=== PATIENT | female | born 1930 | race Caucasian/White ===

== ENCOUNTER → 2017-02-16 | Outpatient (CLI) | payer BC ==
[~2017-02-16] MED LIST: ACET-1256 PO; CLTP PO; CMD25 PO; CMD5 PO; CYM60 PO; DTR5 PO; DYZ PO; LEVO100T48 PO; LIDO5DIS10 TD; METO50TA16 PO; PRED-301 PO; SIMV40TA2 PO; TRAM-10 PO; [UNRECOGNIZED DRUG - CODE] PO
[2017-02-16 17:19] LABS: BASO % 0.2 %; BASO ABS # 0.03 K/uL (0-0.2); COMPLETE YES; EOS % 0.6 %; IG% 0.9 %; LYMPH % 19.1 %; LYMPH ABS # 2.41 K/uL (1.2-3.4); MEAN CELL VOLUME 96.3 fL (80-100); MEAN CORPUSCULAR HEMOGLOBIN 33.1 pg (25-34); MEAN CORPUSCULAR HGB CONC 34.4 g/dl (32-36); MEAN PLATELET VOLUME 10.1 fL (7.4-10.4); MONO % 6.2 %; PLATELET COUNT 314 K/uL (130-400); RED BLOOD COUNT 4.05 M/uL (4.2-5.4); WHITE BLOOD COUNT 12.65 K/uL (4.8-10.8)
[2017-02-16 17:31] LABS: INR 2.8 (0.9-1.1); PROTHROMBIN TIME (PATIENT) 31.3 SECONDS (9.0-12.0)
[2017-02-16 17:44] LABS: ALT/SGPT 15 U/L (12-78); AST/SGOT 16 U/L (15-37); BLOOD UREA NITROGEN 34 mg/dl (7-18); BUN/CREATININE RATIO 18.7 (10-20); CALCIUM 8.6 mg/dl (8.5-10.1); CARBON DIOXIDE 22 mmol/L (21-32); CHLORIDE 110 mmol/L (98-107); GLUCOSE 153 mg/dl (70-99); POTASSIUM 4.6 mmol/L (3.5-5.1); SODIUM 141 mmol/L (136-145)
[2017-02-16 17:54] LABS: ALB/GLOB RATIO 0.8 (0.9-2); ALKALINE PHOSPHATASE 109 U/L (45-117)
[2017-02-17 06:35] LABS: ESTIMATED AVERAGE GLUCOSE 163 mg/dl; HA1C FLAG Normal (Normal)
== END | disposition home or self-care (01) ==
LOC: C.LAB1850 16:04
PROVIDERS: ATTEND Internal Medicine
DX: N18.3 Chronic kidney disease, stage 3 (moderate) (principal); E03.9 Hypothyroidism, unspecified; E11.9 Type 2 diabetes mellitus without complications; D68.59 Other primary thrombophilia

== ENCOUNTER → 2017-06-18 | Outpatient (CLI) | payer BC ==
[2017-06-18 16:53] LABS: HEMATOCRIT 40.4 % (37-47); MEAN CELL VOLUME 96.9 fL (80-100); MEAN CORPUSCULAR HEMOGLOBIN 30.9 pg (25-34); MEAN CORPUSCULAR HGB CONC 31.9 g/dl (32-36); MEAN PLATELET VOLUME 10.2 fL (7.4-10.4); PLATELET COUNT 277 K/uL (130-400); RED BLOOD COUNT 4.17 M/uL (4.2-5.4); WHITE BLOOD COUNT 11.86 K/uL (4.8-10.8)
[2017-06-18 17:06] LABS: PROTHROMBIN TIME (PATIENT) 46.7 SECONDS (9.0-12.0)
[2017-06-18 17:09] LABS: INR 4.1 (0.9-1.1)
[2017-06-18 17:24] LABS: ALT/SGPT 16 U/L (12-78); AST/SGOT 17 U/L (15-37); BLOOD UREA NITROGEN 32 mg/dl (7-18); CALCIUM 8.7 mg/dl (8.5-10.1); CARBON DIOXIDE 24 mmol/L (21-32); CHLORIDE 109 mmol/L (98-107); GLUCOSE 97 mg/dl (70-99); POTASSIUM 4.6 mmol/L (3.5-5.1); SODIUM 141 mmol/L (136-145)
[2017-06-18 17:35] LABS: ALB/GLOB RATIO 0.7 (0.9-2); ALKALINE PHOSPHATASE 107 U/L (45-117); CHOLESTEROL 206 mg/dl (0-200); CHOLESTEROL/HDL RATIO 4.5; HDL CHOLESTEROL 46 mg/dl; LDL CHOLESTEROL CALCULATED 115 mg/dl; TRIGLYCERIDES 225 mg/dl (0-150); VERY LOW DENSITY LIPOPROT CALC 45 mg/dl
[2017-06-19 06:26] LABS: ESTIMATED AVERAGE GLUCOSE 134 mg/dl; HA1C FLAG Normal (Normal)
== END | disposition home or self-care (01) ==
LOC: C.LAB1850 15:39
PROVIDERS: ATTEND Internal Medicine
DX: E03.9 Hypothyroidism, unspecified (principal); E11.9 Type 2 diabetes mellitus without complications; N18.3 Chronic kidney disease, stage 3 (moderate); D68.59 Other primary thrombophilia; E78.5 Hyperlipidemia, unspecified

== ENCOUNTER → 2017-06-20 | Outpatient (CLI) | payer BC ==
[2017-06-20 12:45] LABS: INR 2.2 (0.9-1.1); PROTHROMBIN TIME (PATIENT) 24.3 SECONDS (9.0-12.0)
== END | disposition home or self-care (01) ==
LOC: C.LAB1850 11:42
PROVIDERS: ATTEND Internal Medicine
DX: I70.0 Atherosclerosis of aorta (principal); Z51.81 Encounter for therapeutic drug level monitoring

== ENCOUNTER → 2017-07-05 | Outpatient (CLI) | payer BC ==
[2017-07-05 13:46] LABS: BLOOD UREA NITROGEN 34 mg/dl (7-18); BUN/CREATININE RATIO 19.8 (10-20); CARBON DIOXIDE 23 mmol/L (21-32); CHLORIDE 110 mmol/L (98-107); GLUCOSE 144 mg/dl (70-99); POTASSIUM 4.2 mmol/L (3.5-5.1); SODIUM 143 mmol/L (136-145)
== END | disposition home or self-care (01) ==
LOC: C.LAB1850 11:28
PROVIDERS: ATTEND Internal Medicine
DX: E11.9 Type 2 diabetes mellitus without complications (principal); N18.3 Chronic kidney disease, stage 3 (moderate)

== ENCOUNTER → 2017-08-02 | Outpatient (CLI) | payer BC ==
[2017-08-02 16:54] LABS: INR 2.5 (0.9-1.1); PROTHROMBIN TIME (PATIENT) 28.3 SECONDS (9.0-12.0)
== END | disposition home or self-care (01) ==
LOC: C.LAB1850 15:09
PROVIDERS: ATTEND Internal Medicine
DX: Z51.81 Encounter for therapeutic drug level monitoring (principal); Z79.01 Long term (current) use of anticoagulants

== ENCOUNTER → 2017-10-12 | Outpatient (CLI) | payer BC ==
[2017-10-12 12:12] LABS: INR 3.5 (0.9-1.1); PROTHROMBIN TIME (PATIENT) 36.2 SECONDS (9.0-12.0)
== END | disposition home or self-care (01) ==
LOC: C.LAB1850 10:54
PROVIDERS: ATTEND Internal Medicine
DX: Z51.81 Encounter for therapeutic drug level monitoring (principal)

== ENCOUNTER → 2017-10-30 | Outpatient (CLI) | payer BC ==
[2017-10-30 13:31] LABS: PROTHROMBIN TIME (PATIENT) 31.3 SECONDS (9.0-12.0)
[2017-10-30 13:32] LABS: HEMATOCRIT 39.4 % (37-47); MEAN CELL VOLUME 97.3 fL (80-100); MEAN CORPUSCULAR HEMOGLOBIN 32.1 pg (25-34); MEAN PLATELET VOLUME 10.2 fL (7.4-10.4); PLATELET COUNT 283 K/uL (130-400); RED BLOOD COUNT 4.05 M/uL (4.2-5.4)
[2017-10-30 13:50] LABS: BLOOD UREA NITROGEN 44 mg/dl (7-18); BUN/CREATININE RATIO 21.3 (10-20); CALCIUM 8.5 mg/dl (8.5-10.1); CARBON DIOXIDE 22 mmol/L (21-32); CHLORIDE 108 mmol/L (98-107); CREATININE 2.05 mg/dl (0.60-1.20); GLUCOSE 126 mg/dl (70-99); POTASSIUM 4.4 mmol/L (3.5-5.1); SODIUM 139 mmol/L (136-145)
[2017-10-31 06:07] LABS: ESTIMATED AVERAGE GLUCOSE 146 mg/dl; HA1C FLAG Normal (Normal)
== END | disposition home or self-care (01) ==
LOC: C.LAB1850 12:37
PROVIDERS: ATTEND Internal Medicine
DX: E11.22 Type 2 diabetes mellitus with diabetic chronic kidney disease (principal); N18.3 Chronic kidney disease, stage 3 (moderate); Z51.81 Encounter for therapeutic drug level monitoring; Z79.01 Long term (current) use of anticoagulants; E03.9 Hypothyroidism, unspecified

== ENCOUNTER 2017-12-17 21:48 | Emergency (ER) | payer BC ==
[~2017-12-17] VITALS: Ht 157.5 cm; Wt 87.6 kg
[2017-12-17 21:56] VITALS: TEMP 36.7; Ht 157.5 cm; Wt 87.6 kg
[2017-12-17 22:00] VITALS: O2SAT 94
[2017-12-17 22:24] LABS: BASO % 0.2 %; BASO ABS # 0.02 K/uL (0-0.2); EOS % 0.2 %; EOS ABS # 0.02 K/uL (0-0.5); HEMATOCRIT 44.5 % (37-47); HEMOGLOBIN 15.2 g/dL (12.0-16.0); IG# 0.11 K/uL (0.00-0.02); LYMPH ABS # 0.92 K/uL (1.2-3.4); MEAN CELL VOLUME 96.5 fL (80-100); MEAN CORPUSCULAR HGB CONC 34.2 g/dl (32-36); MEAN PLATELET VOLUME 10.6 fL (7.4-10.4); MONO % 13.5 %; MONO ABS # 1.24 K/uL (0.11-0.59); NEUT % 74.9 %; NEUT ABS # 6.88 K/uL (1.4-6.5); PLATELET COUNT 216 K/uL (130-400); RED CELL DISTRIBUTION WIDTH CV 13.9 % (11.5-14.5); RED CELL DISTRIBUTION WIDTH SD 48.9 fL (36.4-46.3); WHITE BLOOD COUNT 9.19 K/uL (4.8-10.8)
[2017-12-17 22:39] LABS: ALBUMIN 3.3 gm/dl (3.4-5.0); CALCIUM 8.8 mg/dl (8.5-10.1); CREATININE 2.27 mg/dl (0.60-1.20); POTASSIUM 4.3 mmol/L (3.5-5.1)
[2017-12-17 22:47] LABS: INFLUENZA B ANTIGEN Neg for Influ B (NEG)
[2017-12-17] MEDS ORDERED: SODIUM CHLORIDE 0.9% 1000ML 1,000 ML IV STA (22:55)
--- NOTE | 2017-12-17 22:57 | EMERGENCY ROOM VISIT NOTE ---
History Report prepared by Nadine: Don Gabriel Under the Supervision of: Dr. Salvatore Thompson M.D. First contact with patient: 22:49 Chief Complaint: DIARRHEA Stated Complaint: DEHYDRATION, FLU LIKE Nursing Triage Summary: pt arrives ALS from home. per report, pt has had diarrhea for several days and family is concerned for dehydration. pt also having decreased intake and confusion. History of Present Illness The patient is an 87 year old female who presents to the Emergency Room with complaints of constant weakness beginning this morning. The patient states that she has been having intermittent diarrhea for the past few days and woke up this morning feeling weak. The patient also complains of dry heaving and a cough. Per son, the patient has not taken her medication today. He notes that the patient's diarrhea has "not been that bad." He reports that he is afraid that the patient might be dehydrated. The patient denies any leg swelling, vomiting, SOB, back pain, urinary burning, and abdominal surgeries. Source of History: patient, family Onset: this morning Position: other (global) Quality: other (weakness) Timing: constant Associated Symptoms: + cough, + diarrhea, No SOB, No vomiting, No back pain Note: The patient also complains of dry heaving. She denies any leg swelling and urinary burning. Review of Systems See HPI for pertinent positives & negatives. A total of 10 systems reviewed and were otherwise negative. Past Medical & Surgical Medical Problems: (1) No chronic problems Surgical Problems: (1) H/O knee surgery Family History No pertinent family history stated. Social History Smoking Status: Unknown if Ever Smoked Alcohol Use: none Marital Status: Housing Status: lives with family Occupation Status: retired Current/Historical Medications Scheduled Acetaminophen (Tylenol), 1-2 TABLETS PO Q12HR PRN Calcium W/ Vitamins D & K (Calcium + D), 1 TAB PO QAM Captopril (Capoten), 50 MG PO BID Duloxetine HCl (Cymbalta), 30 MG PO QAM Glimepiride (Glimepiride), 1 MG PO DAILYBB Levothyroxine Sodium (Levothyroxine Sodium), 88 MCG PO QAM Metoprolol Tartrate (Lopressor) (Lopressor), 50 MG PO BID Oxybutynin Chloride (Oxybutynin Chloride), 5 MG PO QAM Prednisone (Prednisone), 5 MG PO DAILY Simvastatin (Zocor), 40 MG PO QPM Tramadol (Ultram), 50 MG PO Q4HR PRN Triamterene/Hctz (Triamterene/Hctz 37.5-25MG), 1 TAB PO QAM Warfarin Sod (Coumadin), 5 MG PO DIRECTED Warfarin Sod (Coumadin), 2.5 MG PO DIRECTED Scheduled PRN Diphenoxylate/Atropine (Lomotil), 1 TAB PO DAILY PRN for Diarrhea Allergies Coded Allergies: No Known Allergies (Verified , 12/17/17) Physical Exam Vital Signs Date Time Temp Pulse Resp B/P (MAP) Pulse Ox O2 Delivery O2 Flow Rate FiO2 12/18/17 01:20 103 20 156/119 95 12/18/17 00:37 100 12/17/17 23:37 95 20 199/95 95 Room Air 12/17/17 22:01 102 12/17/17 22:00 94 Room Air 12/17/17 21:56 36.7 103 24 127/97 95 Room Air Physical Exam GENERAL: Patient is elderly appearing and in minimal distress. Dehydrated appearing. HEENT: No acute trauma, normocephalic atraumatic, mucous membranes dry, no nasal congestion, no scleral icterus. NECK: No stridor, no adenopathy, no meningismus, trachea is midline. LUNGS: No dyspnea. Clear to auscultation and equal bilaterally. No wheeze, no rhonchi. HEART: Regular rate and rhythm. No murmurs, rubs, gallops appreciated. ABDOMEN: Soft, nontender, bowel sounds positive, no masses appreciated, no peritonitis. Umbilical hernia, easily reducible. BACK: No midline tenderness, no CVA tenderness EXTREMITIES: Normal motion all extremities, no cyanosis, no edema. NEUROLOGIC: Alert and oriented, no acute motor or sensory deficits, no focal weakness, cranial nerves grossly intact. SKIN: No rash, no jaundice, no diaphoresis. Cracked skin with poor skin turgor. Medical Decision & Procedures ER Provider Diagnostic Interpretation: X ray results are stated below per my interpretation: Chest: 1 view: No infiltrate, no effusion, normal cardiac border. Laboratory Results 12/17/17 22:10 Red Blood Count 4.61, Mean Corpuscular Volume 96.5, Mean Corpuscular Hemoglobin 33.0, Mean Corpuscular Hemoglobin Concent 34.2, Mean Platelet Volume 10.6, Neutrophils (%) (Auto) 74.9, Lymphocytes (%) (Auto) 10.0, Monocytes (%) (Auto) 13.5, Eosinophils (%) (Auto) 0.2, Basophils (%) (Auto) 0.2, Neutrophils # (Auto ) 6.88, Lymphocytes # (Auto) 0.92, Monocytes # (Auto) 1.24, Eosinophils # (Auto ) 0.02, Basophils # (Auto) 0.02 12/17/17 22:10 Test 12/17/17 22:10 12/17/17 23:20 12/17/17 23:29 White Blood Count 9.19 K/uL (4.8-10.8) Red Blood Count 4.61 M/uL (4.2-5.4) Hemoglobin 15.2 g/dL (12.0-16.0) Hematocrit 44.5 % (37-47) Mean Corpuscular Volume 96.5 fL (80-100) Mean Corpuscular Hemoglobin 33.0 pg (25-34) Mean Corpuscular Hemoglobin Concent 34.2 g/dl (32-36) Platelet Count 216 K/uL (130-400) Mean Platelet Volume 10.6 fL (7.4-10.4) Neutrophils (%) (Auto) 74.9 % Lymphocytes (%) (Auto) 10.0 % Monocytes (%) (Auto) 13.5 % Eosinophils (%) (Auto) 0.2 % Basophils (%) (Auto) 0.2 % Neutrophils # (Auto) 6.88 K/uL (1.4-6.5) Lymphocytes # (Auto) 0.92 K/uL (1.2-3.4) Monocytes # (Auto) 1.24 K/uL (0.11-0.59) Eosinophils # (Auto) 0.02 K/uL (0-0.5) Basophils # (Auto) 0.02 K/uL (0-0.2) RDW Standard Deviation 48.9 fL (36.4-46.3) RDW Coefficient of Variation 13.9 % (11.5-14.5) Immature Granulocyte % (Auto) 1.2 % Immature Granulocyte # (Auto) 0.11 K/uL (0.00-0.02) Anion Gap 14.0 mmol/L (3-11) Est Creatinine Clear Calc Drug Dose 18.3 ml/min Estimated GFR () 21.9 Estimated GFR (Non- 18.9 BUN/Creatinine Ratio 12.6 (10-20) Calcium Level 8.8 mg/dl (8.5-10.1) Magnesium Level 1.7 mg/dl (1.8-2.4) Total Bilirubin 0.3 mg/dl (0.2-1) Aspartate Amino Transf (AST/SGOT) 35 U/L (15-37) Alanine Aminotransferase (ALT/SGPT) 25 U/L (12-78) Alkaline Phosphatase 118 U/L (45-117) Total Protein 8.0 gm/dl (6.4-8.2) Albumin 3.3 gm/dl (3.4-5.0) Globulin 4.7 gm/dl (2.5-4.0) Albumin/Globulin Ratio 0.7 (0.9-2) Influenza Type A Antigen Neg for Influ A (NEG) Influenza Type B Antigen Neg for Influ B (NEG) Urine Color YELLOW Urine Appearance CLEAR (CLEAR) Urine pH 5.0 (4.5-7.5) Urine Specific [place] 1.015 (1.000-1.030) Urine Protein 1+ (NEG) Urine Glucose (UA) NEG (NEG) Urine Ketones NEG (NEG) Urine Occult Blood TRACE (NEG) Urine Nitrite NEG (NEG) Urine Bilirubin NEG (NEG) Urine Urobilinogen NEG (NEG) Urine Leukocyte Esterase NEG (NEG) Urine WBC (Auto) 1-5 /hpf (0-5) Urine RBC (Auto) 0-4 /hpf (0-4) Urine Hyaline Casts (Auto) 1-5 /lpf (0-5) Urine Epithelial Cells (Auto) 0-5 /lpf (0-5) Urine Bacteria (Auto) NEG (NEG) Prothrombin Time 17.0 SECONDS (9.0-12.0) Prothromb Time International Ratio 1.6 (0.9-1.1) Activated Partial Thromboplast Time 32.6 SECONDS (21.0-31.0) Partial Thromboplastin Ratio 1.3 Laboratory results as reviewed by me. Medications Administered Medications (Trade) Dose Ordered Sig/Heri Route Start Time Stop Time Status Last Admin Dose Admin Sodium Chloride 1,000 ml @ 999 mls/hr Q1H1M STAT IV 12/17/17 22:55 12/17/17 23:55 DC 12/17/17 23:04 999 MLS/HR ED Course 2251: The patient was evaluated in room B2. A complete history and physical exam was performed. 0043: I reevaluated and updated the patient. She is awake, alert, and feeling much better. She is also happy, smiling, and drinking water. Discussed results and discharge instructions She verbalized understanding and agreement. The patient is ready for discharge. Medical Decision Differential: Sepsis, Infectious (UTI/Pneumonia/Meningitis/etc), Metabolic/ Electrolyte Abnormality, Cardiac, Dehydration, Anemia, Hepatic, Endocrine, Toxicologic, Neurologic, amongst other pathologies entertained. 87 yr old female arrives for evaluation of generalized weakness and diarrhea. She is dehydrated appearing on arrival. Given 1 L NSS bolus with vast improvement in her appearance and much happier, interactive and better color to face. Breathing comfortably in no distress. She has unremarkable labs other than mild BUN up consistent with some dehydration. UA clear, CXR unremarkable and flu negative. She and son feel comfortable with discharge. Reviewed symptoms requiring RTED. Advised Follow up with PCP. Of not BP elevated which I suspect is secondary to not taking her meds today. Medication Reconcilliation Current Medication List: was personally reviewed by me Blood Pressure Screening Patient's blood pressure: Elevated blood pressure Blood pressure disposition: Referred to PCP Impression Primary Impression: Dehydration Additional Impressions: Diarrhea Hypertension Scribe Attestation The scribe's documentation has been prepared under my direction and personally reviewed by me in its entirety. I confirm that the note above accurately reflects all work, treatment, procedures, and medical decision making performed by me. Departure Information Dispostion Home / Self-Care Referrals Conner Solares M.D. (PCP) Forms HOME CARE DOCUMENTATION FORM, IMPORTANT VISIT INFORMATION, WORK / SCHOOL INSTRUCTIONS Patient Instructions ED Dehydration, My [facility] Additional Instructions Please follow up with your primary care provider in the next few days for recheck. We are always here to help. Your blood pressure was elevated during this visit. This is quite common in many people who are being evaluated in the Emergency Department for many reasons. However, it is important that you have your Primary Care Provider recheck your blood pressure and discuss whether treatment will be needed. prison elevated blood pressure can lead to strokes, heart attacks, kidney failure amongst other medical issues. If you develop severe headaches, chest pain, weakness in arms or legs, or other concerning symptoms call 911. Problem Qualifiers
[2017-12-18] MEDS ORDERED: TRIATAB3 PO
[2017-12-18] MEDS ORDERED: DIPH-416 PO
[2017-12-18] MEDS ORDERED: CYM/30 PO
[2017-12-18] MEDS ORDERED: CPT50 PO
[2017-12-18] MEDS ORDERED: GLIM1TAB2 PO
[2017-12-18] MEDS ORDERED: DTR5 PO
[2017-12-18] MEDS ORDERED: LEVO88TA3 PO
[2017-12-18] MEDS ORDERED: CALC1CHW57 PO
[2017-12-18] MEDS ORDERED: CMD5 PO (00:04)
[2017-12-18] MEDS ORDERED: CMD25 PO (00:04)
[2017-12-18 00:10] LABS: INR 1.6 (0.9-1.1); PTT PATIENT 32.6 SECONDS (21.0-31.0)
[2017-12-18 01:20] VITALS: BP 156/119; PULSE 103; O2SAT 95
--- NOTE | 2017-12-18 06:37 | DIAGNOSTIC IMAGING REPORT ---
CHEST ONE VIEW PORTABLE CLINICAL HISTORY: Cough, weakness. COMPARISON STUDY: Chest radiograph and chest CT April 18, 2016. FINDINGS: Lung volumes are normal. There is no pneumothorax or pleural effusion. Mild left basilar opacity likely reflects epicardial fat pad or atelectasis. There is mild cardiomegaly without evidence for pulmonary edema. There is no consolidation to suggest pneumonia. IMPRESSION: No acute cardiopulmonary findings. Electronically signed by: Aleksandr Jiménez M.D. 12/18/2017 6:36 AM Dictated Date/Time: 12/18/2017 6:34 AM
[2017-12-18] MEDS ORDERED: WARF1TAB6 PO (12:54)
== END 2017-12-18 01:28 | disposition home or self-care (01) ==
LOC: EDBD 21:48 → C.EDB 21:49
DX: E86.0 Dehydration (principal); R19.7 Diarrhea, unspecified; I10 Essential (primary) hypertension; R53.1 Weakness; R05 Cough; Z79.01 Long term (current) use of anticoagulants; Z79.899 Other long term (current) drug therapy

== ENCOUNTER 2017-12-18 12:11 | Inpatient (IN) | payer BC, OTHER ==
[~2017-12-18] VITALS: Ht 157.5 cm; Wt 90.5 kg
[~2017-12-18 12:11] MED LIST changes: +CALC1CHW57 PO; +CPT50 PO; +CYM/30 PO; +DIPH-416 PO; +GLIM1TAB2 PO; +LEVO88TA3 PO; -LIDO5DIS10 TD; +TRIATAB3 PO
[2017-12-18] MEDS ORDERED: METOPROLOL TARTRATE 1 MG/ML VIAL IV STA (12:22)
--- NOTE | 2017-12-18 12:51 | DIAGNOSTIC IMAGING REPORT ---
CHEST ONE VIEW PORTABLE CLINICAL HISTORY: Evaluate Fever/Sepsis COMPARISON STUDY: 12/17/2017 FINDINGS: Moderate cardiac megaly. Chronic thickening left lateral costophrenic angle. Lungs otherwise appear clear. IMPRESSION: Moderate cardiomegaly. No acute process. The above report was generated using voice recognition software. It may contain grammatical, syntax or spelling errors. Electronically signed by: Mau Gomez M.D. 12/18/2017 12:49 PM Dictated Date/Time: 12/18/2017 12:47 PM
[2017-12-18] MEDS ORDERED: WARF1TAB6 PO (12:54)
[2017-12-18 13:04] LABS: BASO % 0.2 %; BASO ABS # 0.02 K/uL (0-0.2); EOS % 0.1 %; EOS ABS # 0.01 K/uL (0-0.5); HEMATOCRIT 40.9 % (37-47); HEMOGLOBIN 13.7 g/dL (12.0-16.0); IG# 0.09 K/uL (0.00-0.02); LYMPH % 20.7 %; LYMPH ABS # 1.73 K/uL (1.2-3.4); MEAN CELL VOLUME 94.5 fL (80-100); MEAN CORPUSCULAR HEMOGLOBIN 31.6 pg (25-34); MEAN CORPUSCULAR HGB CONC 33.5 g/dl (32-36); MEAN PLATELET VOLUME 10.3 fL (7.4-10.4); MONO ABS # 1.84 K/uL (0.11-0.59); NEUT % 55.9 %; NEUT ABS # 4.68 K/uL (1.4-6.5); PLATELET COUNT 207 K/uL (130-400); RED CELL DISTRIBUTION WIDTH CV 14.1 % (11.5-14.5); RED CELL DISTRIBUTION WIDTH SD 48.1 fL (36.4-46.3); WHITE BLOOD COUNT 8.37 K/uL (4.8-10.8)
[2017-12-18 13:38] LABS: ALBUMIN 2.8 gm/dl (3.4-5.0); ALKALINE PHOSPHATASE 91 U/L (45-117); ALT/SGPT 26 U/L (12-78); BLOOD UREA NITROGEN 31 mg/dl (7-18); CALCIUM 8.2 mg/dl (8.5-10.1); CARBON DIOXIDE 19 mmol/L (21-32); CKMB 6.3 ng/ml (0.5-3.6); GLUCOSE 135 mg/dl (70-99); LIPASE 180 U/L (73-393); SODIUM 134 mmol/L (136-145); TOTAL PROTEIN 6.9 gm/dl (6.4-8.2)
[2017-12-18 13:43] LABS: INR 1.3 (0.9-1.1); PTT PATIENT 27.1 SECONDS (21.0-31.0)
[2017-12-18] MEDS ORDERED: HEPARIN 25000 UNIT/500 ML D5W ONE (14:51)
--- NOTE | 2017-12-18 15:01 | EMERGENCY ROOM VISIT NOTE ---
History Report prepared by Nadine: Selvin Vinson Under the Supervision of: Dr. Miguel Ángel Alexander D.O. First contact with patient: 12:16 Stated Complaint: ILLNESS History of Present Illness The patient is an 87 year old female who presents to the Emergency Room with complaints of worsening weakness that began last night. The patient was in the emergency department last night for weakness after a fall in her driveway and was discharged home. When she woke up this morning she was not able to get herself out of bed secondary to her weakness. Upon arrival to the emergency department her blood pressures was in the low 70s systolically. Source of History: patient Onset: Last night Position: other (Global) Quality: other (weakness) Timing: worsening Review of Systems See HPI for pertinent positives & negatives. A total of 10 systems reviewed and were otherwise negative. Past Medical & Surgical Medical Problems: (1) No chronic problems Surgical Problems: (1) H/O knee surgery Family History Family history omitted secondary to age. Social History Smoking Status: Unknown if Ever Smoked Alcohol Use: none Marital Status: Housing Status: lives with family Occupation Status: retired Current/Historical Medications Scheduled Captopril (Capoten), 50 MG PO BID Duloxetine HCl (Cymbalta), 30 MG PO QAM Glimepiride (Glimepiride), 1 MG PO DAILYBB Levothyroxine Sodium (Levothyroxine Sodium), 88 MCG PO QAM Metoprolol Tartrate (Lopressor) (Lopressor), 50 MG PO BID Prednisone (Prednisone), 5 MG PO DAILY Simvastatin (Zocor), 40 MG PO QPM Triamterene/Hctz (Triamterene/Hctz 37.5-25MG), 1 TAB PO QAM Warfarin Sod (Jantoven), 3 MG PO DAILY Scheduled PRN Diphenoxylate/Atropine (Lomotil), 1 TAB PO DAILY PRN for Diarrhea Allergies Coded Allergies: No Known Allergies (Verified , 12/18/17) Physical Exam Vital Signs Date Time Temp Pulse Resp B/P (MAP) Pulse Ox O2 Delivery O2 Flow Rate FiO2 12/18/17 14:49 86 20 127/84 97 Nasal Cannula 2.0 12/18/17 13:16 82 18 114/70 96 Nasal Cannula 2.0 12/18/17 13:06 82 12/18/17 12:51 98 Nasal Cannula 2.0 12/18/17 12:32 165 110/59 12/18/17 12:22 186 12/18/17 12:15 92 Room Air 12/18/17 12:15 36.4 180 22 73/66 96 Room Air 12/18/17 12:15 96 Room Air Physical Exam CONSTITUTIONAL/VITAL SIGNS: Reviewed / noted above. GENERAL: Non-toxic in appearance. INTEGUMENTARY: Warm, dry, and [place]. HEAD: Normocephalic. EYES: without scleral icterus or trauma. ENT/OROPHARYNX: clear and moist. LYMPHADENOPATHY/NECK: Is supple without lymphadenopathy or meningismus. RESPIRATORY: Lungs clear and equal. CARDIOVASCULAR: Tachycardic rate with normal rhythm. GI/ABDOMEN: Soft and nontender. No organomegaly or pulsatile mass. No rebound or guarding. Normal bowel sounds. EXTREMITIES: Warm and well perfused. BACK: No CVA tenderness. NEUROLOGICAL: Intact without focal deficits. PSYCHIATRIC: normal affect. MUSCULOSKELETAL: Normally developed with good muscle tone. Medical Decision & Procedures ER Provider Diagnostic Interpretation: Radiology results as stated below per my review and radiologist interpretation: CHEST ONE VIEW PORTABLE CLINICAL HISTORY: Evaluate Fever/Sepsis COMPARISON STUDY: 12/17/2017 FINDINGS: Moderate cardiac megaly. Chronic thickening left lateral costophrenic angle. Lungs otherwise appear clear. IMPRESSION: Moderate cardiomegaly. No acute process. The above report was generated using voice recognition software. It may contain grammatical, syntax or spelling errors. Electronically signed by: Mau Gomez M.D. 12/18/2017 12:49 PM Dictated Date/Time: 12/18/2017 12:47 PM Laboratory Results 12/18/17 12:55 Red Blood Count 4.33, Mean Corpuscular Volume 94.5, Mean Corpuscular Hemoglobin 31.6, Mean Corpuscular Hemoglobin Concent 33.5, Mean Platelet Volume 10.3, Neutrophils (%) (Auto) 55.9, Lymphocytes (%) (Auto) 20.7, Monocytes (%) (Auto) 22.0, Eosinophils (%) (Auto) 0.1, Basophils (%) (Auto) 0.2, Neutrophils # (Auto ) 4.68, Lymphocytes # (Auto) 1.73, Monocytes # (Auto) 1.84, Eosinophils # (Auto ) 0.01, Basophils # (Auto) 0.02 12/18/17 12:55 Test 12/18/17 12:22 12/18/17 12:55 12/18/17 13:26 White Blood Count 8.37 K/uL (4.8-10.8) Red Blood Count 4.33 M/uL (4.2-5.4) Hemoglobin 13.7 g/dL (12.0-16.0) Hematocrit 40.9 % (37-47) Mean Corpuscular Volume 94.5 fL (80-100) Mean Corpuscular Hemoglobin 31.6 pg (25-34) Mean Corpuscular Hemoglobin Concent 33.5 g/dl (32-36) Platelet Count 207 K/uL (130-400) Mean Platelet Volume 10.3 fL (7.4-10.4) Neutrophils (%) (Auto) 55.9 % Lymphocytes (%) (Auto) 20.7 % Monocytes (%) (Auto) 22.0 % Eosinophils (%) (Auto) 0.1 % Basophils (%) (Auto) 0.2 % Neutrophils # (Auto) 4.68 K/uL (1.4-6.5) Lymphocytes # (Auto) 1.73 K/uL (1.2-3.4) Monocytes # (Auto) 1.84 K/uL (0.11-0.59) Eosinophils # (Auto) 0.01 K/uL (0-0.5) Basophils # (Auto) 0.02 K/uL (0-0.2) RDW Standard Deviation 48.1 fL (36.4-46.3) RDW Coefficient of Variation 14.1 % (11.5-14.5) Immature Granulocyte % (Auto) 1.1 % Immature Granulocyte # (Auto) 0.09 K/uL (0.00-0.02) Anion Gap 13.0 mmol/L (3-11) Estimated GFR () 22.8 Estimated GFR (Non- 19.6 BUN/Creatinine Ratio 14.0 (10-20) Calcium Level 8.2 mg/dl (8.5-10.1) Total Bilirubin 0.4 mg/dl (0.2-1) Direct Bilirubin mg/dl (0-0.2) Aspartate Amino Transf (AST/SGOT) U/L (15-37) Alanine Aminotransferase (ALT/SGPT) 26 U/L (12-78) Alkaline Phosphatase 91 U/L (45-117) Total Creatine Kinase U/L (26-192) Creatine Kinase MB 6.3 ng/ml (0.5-3.6) Creatine Kinase MB Ratio (0-3.0) Troponin I 0.207 ng/ml (0-0.045) Total Protein 6.9 gm/dl (6.4-8.2) Albumin 2.8 gm/dl (3.4-5.0) Lipase 180 U/L (73-393) Thyroid Stimulating Hormone (TSH) 1.330 uIu/ml (0.300-4.500) Prothrombin Time 14.0 SECONDS (9.0-12.0) Prothromb Time International Ratio 1.3 (0.9-1.1) Activated Partial Thromboplast Time 27.1 SECONDS (21.0-31.0) Partial Thromboplastin Ratio 1.0 Laboratory results as stated above per my review. Medications Administered Medications (Trade) Dose Ordered Sig/Heri Route Start Time Stop Time Status Last Admin Dose Admin Metoprolol Tartrate (Lopressor Iv) 5 mg NOW STAT IV 12/18/17 12:22 12/18/17 12:27 DC 12/18/17 12:32 5 MG ECG Indication: weakness Rate (beats per minute): 180 Rhythm: SVT Findings: other (No ST elevations or Depressions) Comparison ECG Date: Change: REAPEAT EKG SHOWS: Sinus tachycardia 109, PACs present, no acute injury. THIRD EKG: SR 86, PACs, NO ST elevations or depressions. Patient's electrocardiogram interpreted by me. ED Course 1217: Previous medical records were reviewed. The patient was evaluated in room B9. A complete history and physical examination was performed. 1222: Ordered Lopressor IV 5 mg IV. 1440: I discussed the case with Dr. Kael CROSS Hospitalist. She will evaluate the patient for further treatment. Medical Decision Differential includes acute coronary syndrome, myocardial infarction, CVA, TIA, anemia, infection, pneumonia, UTI, pyelonephritis, poor nutrition, dehydration, electrolyte disturbance,hypoglycemia. This is an 87-year-old female who presents to the ED with a chief complaint of weakness this morning. She was brought in for evaluation for this. She fell last night after being discharged from the hospital. She was evaluated last night and felt to have dehydration. Last night she was also hypertensive. On her presentation, she is in an SVT with a heart rate of 180. Her blood pressure was initially low. As I was evaluating the patient, she spontaneously converted into a sinus rhythm with a rate around 100. During my initial evaluation she had at least 2 other episodes of SVT that lasted for several minutes. The patient was eventually given Lopressor IV 5 mg and her heart rate improved. The patient's blood pressure was also improved after spontaneous conversion to sinus rhythm. The patient's blood work reveals a unremarkable CBC. Troponin was slightly elevated at 0.207. BUN and creatinine are elevated at 2.2. She is chronically on Coumadin and her INR is 1.3. She is on this for PE. TSH was normal, chest x-ray reveals cardiomegaly. The patient was started on IV heparin after spoke with the hospitalist. She will be admitted for the elevated troponin, recurrent SVT and subtherapeutic INR. Medication Reconcilliation Current Medication List: was personally reviewed by me Blood Pressure Screening Patient's blood pressure: Low blood pressure Referred to hospitalist Consults Time Called: 1435 Consulting Physician: Dr. Kael CROSS Hospitalist Returned Call: 1440 I discussed the case with Dr. Kael CROSS Hospitalist. She will evaluate the patient for further treatment. Impression Primary Impression: Elevated troponin Additional Impression: SVT (supraventricular tachycardia) Scribe Attestation The scribe's documentation has been prepared under my direction and personally reviewed by me in its entirety. I confirm that the note above accurately reflects all work, treatment, procedures, and medical decision making performed by me. Departure Information Dispostion Being Evaluated By Hospitalist Referrals Conner Solares M.D. (PCP) Problem Qualifiers
[2017-12-18] MEDS ORDERED: GLUCAGON FOR INJ 1 MG VIAL SQ PRN (16:45)
[2017-12-18] MEDS ORDERED: ALUMINUM/MAGNESIUM/SIMETH (MAALOX MAX) 30 ML UDC PO PRN (16:45)
[2017-12-18] MEDS ORDERED: DEXTROSE 50% 50 ML SYR IV PRN (16:45)
[2017-12-18] MEDS ORDERED: MAGNESIUM HYDROXIDE SUSP 30 ML UDC PO PRN (16:45)
[2017-12-18] MEDS ORDERED: ACETAMINOPHEN 325 MG TAB PO PRN (16:45)
[2017-12-18] MEDS ORDERED: POLYETHYLENE (MIRALAX) 17 GM PACK PO PRN (16:45)
[2017-12-18] MEDS ORDERED: ONDANSETRON INJ 2 MG/ML 2 ML VIAL IV PRN (16:45)
[2017-12-18] MEDS ORDERED: GLUCOSE 10 TABS/TUBE PO PRN (16:45)
[2017-12-18] MEDS ORDERED: GLUCOSE 40% GEL 15 GM TUBE PO PRN (16:45)
[2017-12-18] MEDS ORDERED: ZOLPIDEM TARTRATE 5 MG TAB PO PRN ×2 (16:45)
[2017-12-18] MEDS ORDERED: HYDROCORTISONE SOD SUCCINATE 100 MG/2 ML VIAL IM SCH (17:00)
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
[2017-12-18 18:01] LABS: AST/SGOT 36 U/L (15-37); POTASSIUM 3.3 mmol/L (3.5-5.1)
[2017-12-18 18:07] VITALS: BP 174/83; PULSE 91; TEMP 36.8; O2SAT 95
[2017-12-18 18:28] VITALS: Ht 157.5 cm; Wt 90.5 kg
[2017-12-18] MEDS: SODIUM CHLORIDE 0.9% 1000ML 1,000 ML IV SCH (18:46)
[2017-12-18 19:56] LABS: INFLUENZA A PCR Neg for Influ A (NEG); INFLUENZA B PCR Neg for Influ B (NEG)
[2017-12-18 20:00] VITALS: BP 147/68; PULSE 97; TEMP 36.7; O2SAT 99
[2017-12-18] MEDS: HYDROCORTISONE IV 50 MG in SYRINGE 0 ML IV SCH (20:38)
[2017-12-18] MEDS: WARFARIN SOD 3 MG TAB PO SCH (20:39)
[2017-12-18] MEDS: SIMVASTATIN 40 MG TAB PO SCH (20:39)
[2017-12-18] MEDS: INSULIN ASPART 100 UNITS/ML 3 ML PEN SC SCH (20:40)
[2017-12-18] MEDS: METOPROLOL TARTRATE 50 MG TAB PO SCH (20:40)
--- NOTE | 2017-12-18 21:24 | DIAGNOSTIC IMAGING REPORT ---
HEAD WITHOUT CONTRAST (CT) CLINICAL HISTORY: 87 years-old Female presenting with weakness. TECHNIQUE: Multidetector CT imaging of the head was performed without the use of intravenous contrast. IV contrast: None. A dose lowering technique was used consistent with the principles of ALARA (as low as reasonably achievable). COMPARISON: None. CT DOSE (mGy.cm): The estimated cumulative dose is 537.48 mGy.cm. FINDINGS: Field Assessor topogram: Unremarkable. Proportional ventricular and sulcal prominence, likely age-related parenchymal volume loss. Periventricular and subcortical white matter hypoattenuation, nonspecific but likely indicative of chronic small vessel ischemic change. No mass effect or midline shift. No hemorrhage or acute territorial infarct. No extra-axial fluid collection. Paranasal sinuses and mastoid air cells clear. Calvarium intact. IMPRESSION: 1. Chronic small vessel ischemic change. No acute intracranial abnormality. Electronically signed by: Qasim Fernandez M.D. 12/18/2017 9:23 PM Dictated Date/Time: 12/18/2017 9:20 PM
[2017-12-19] VITALS (9 sets, daily range): BP systolic 130–181; BP diastolic 64–81; PULSE 61–80; TEMP 36.6–37.1; O2SAT 94–99
[2017-12-19] MEDS: HEPARIN 25,000 UNIT/500ML D5W 500 ML IV PRN ×3 (01:35→20:50)
[2017-12-19 05:12] LABS: ALBUMIN 2.3 gm/dl (3.4-5.0); ALKALINE PHOSPHATASE 79 U/L (45-117); ALT/SGPT 25 U/L (12-78); BLOOD UREA NITROGEN 38 mg/dl (7-18); CALCIUM 7.5 mg/dl (8.5-10.1); CARBON DIOXIDE 22 mmol/L (21-32); CKMB 4.9 ng/ml (0.5-3.6); CREATININE 2.37 mg/dl (0.60-1.20); SODIUM 137 mmol/L (136-145)
[2017-12-19 05:44] LABS: HEMATOCRIT 34.1 % (37-47); HEMOGLOBIN 11.7 g/dL (12.0-16.0); MEAN CELL VOLUME 94.5 fL (80-100); MEAN CORPUSCULAR HEMOGLOBIN 32.4 pg (25-34); MEAN CORPUSCULAR HGB CONC 34.3 g/dl (32-36); MEAN PLATELET VOLUME 10.1 fL (7.4-10.4); PLATELET COUNT 179 K/uL (130-400); RED CELL DISTRIBUTION WIDTH CV 14.2 % (11.5-14.5); RED CELL DISTRIBUTION WIDTH SD 48.6 fL (36.4-46.3); WHITE BLOOD COUNT 6.34 K/uL (4.8-10.8)
[2017-12-19 05:46] LABS: BASO % 0.2 %; BASO ABS # 0.01 K/uL (0-0.2); IG# 0.06 K/uL (0.00-0.02); LYMPH % 23.5 %; LYMPH ABS # 1.49 K/uL (1.2-3.4); MONO ABS # 0.89 K/uL (0.11-0.59); NEUT % 61.4 %; NEUT ABS # 3.89 K/uL (1.4-6.5)
[2017-12-19 06:00] LABS: GLUCOSE 157 mg/dl (70-99)
[2017-12-19] MEDS: LEVOTHYROXINE 88 MCG TAB PO SCH (06:10)
[2017-12-19 06:47] LABS: HEMOGLOBIN A1C 6.7 % (4.5-5.6)
[2017-12-19] MEDS ORDERED: PERFLUTREN LIPID MICROSPHERE (DEFINITY) IV ONE (07:19)
[2017-12-19] MEDS: METOPROLOL TARTRATE 50 MG TAB PO SCH ×2 (07:26→20:55)
[2017-12-19] MEDS: DULOXETINE (CYMBALTA) 30 MG CAP PO SCH (07:26)
[2017-12-19] MEDS: HYDROCORTISONE IV 50 MG in SYRINGE 0 ML IV SCH (07:26)
[2017-12-19] MEDS: INSULIN ASPART 100 UNITS/ML 3 ML PEN SC SCH ×4 (07:55→20:54)
[2017-12-19 08:51] LABS: PTT PATIENT 220.1 SECONDS (21.0-31.0)
[2017-12-19] MEDS: CEFTRIAXONE SOD INJ 1 GM in DEXTROSE 5% ADD-VANTAGE 50ML 50 ML IV SCH (10:30)
[2017-12-19 10:53] LABS: PTT PATIENT 154.3 SECONDS (21.0-31.0)
[2017-12-19 12:13] LABS: PTT PATIENT 95.1 SECONDS (21.0-31.0)
[2017-12-19 12:57] LABS: PTT PATIENT 85.8 SECONDS (21.0-31.0)
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
--- NOTE | 2017-12-19 13:47 | Clinical Documentation Query ---
QUERY 1 OF [address] WILKINS, In your clinical opinion is this patient being managed for: ( ) NSTEMI ( ) Not Agree ( x ) Other explanation of clinical findings (Please Explain) - type 2 MO / myocardial demand ischemia ( ) Unable to determine (Please Define) ( ) Need to Discuss The medical record reflects the following clinical findings, treatment, and risk factors. Clinical Indicators: 87 yo female presenting with worsening weakness and hypotension. HR 180, BP 73/66, trops 0.207/0.973/0.711/0.462. EKG with marked ST abnormality Treatment: tele, O2 support, IV heparin, cardiology consult, serial trops, ECHO with pending results, Risk Factors: age, DM, HTN, CKD stage III, QUERY 2 OF 2 In your clinical opinion is this patient being managed for: ( x ) Urinary tract infection ( ) Not Agree ( ) Other explanation of clinical findings (Please Explain) ( ) Unable to determine (Please Define) ( ) Need to Discuss The medical record reflects the following clinical findings, treatment, and risk factors. Clinical Indicators: UA cx with E coli (prelim) Treatment:IV rocephin, gentle IV fluids, Risk Factors: age, gender, DM, chronic steroid therapy Please clarify and document your clinical opinion in the progress notes and discharge summary. Terms such as "probable", "suspected", "likely", "questionable", "possible", or "still to be ruled out" are acceptable. IF IN AGREEMENT, YOU MUST DOCUMENT ABOVE DIAGNOSTIC STATEMENT IN DAILY PROGRESS NOTES AND DISCHARGE SUMMARY. This document is not part of the patient's record. Thank You, Cristela Barnett, RN [phone]
[2017-12-19] MEDS: SODIUM CHLORIDE 0.9% 1000ML 1,000 ML IV SCH (13:51)
[2017-12-19] MEDS: WARFARIN SOD 3 MG TAB PO SCH (16:00)
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
--- NOTE | 2017-12-19 18:35 | ECHOCARDIOGRAM REPORT ---
*NOTICE TO RECEIVING REPUBLICAN AGENCY This information is strictly Confidential and protected under [place] law. [place] law prohibits you from making any further disclosure of this information unless further disclosure is expressly permitted by the written consent of the person to whom it pertains or is authorized by law. A general authorization for the release of medical or other information is not sufficient for this purpose. Hospital accepts no responsibility if the information is made available to any other person, INCLUDING THE PATIENT. Interpretation Summary * Name: MAIRA BARKER Study Date: 12/19/2017 06:53 AM BP: 181/76 mmHg * Patient Location: [facility]\S\N277\S\1 HR: 69 * : 1930 (M/d/yyy) Gender: Female Height: 62 in * Age: 87 yrs Ethnicity: [place] Weight: 187 lb * Ordering Physician: Dian Rose * Referring Physician: Self, Referred * Performed By: Negrita Johnson RDCS * * Reason For Study: A-flutter * BSA: 1.9 m2 * -- Conclusions -- * Technically difficult study. * 1. Normal LV size. Mild concentric LVH. Grade 1 diastolic dysfunction. * 2. Normal LV systolic function. LVEF 60-65%. No regional wall motion abnormalities. * 3. RV not well visualized, grossly normal size. * 4. Aortic valve sclerosis. Trace aortic regurgitation. * 5. Trace pericardial effusion * 6.. No prior studies for comparison. Procedure Details * A complete two-dimensional transthoracic echocardiogram was performed (2D, M-mode, Doppler and color flow Doppler). * A contrast injection of Definity was performed to improve assessment of LV function. * Contrast was injected into an intravenous site in the right arm. * One vial of Definity ultrasound contrast was diluted in normal saline to a total volume of 10 ml. A total of '2' ml of solution was administered during imaging. * Lot # [id number] of Definity utilized for procedure. * Expiration date NOV 23. * The attending nurse who injected the contrast agent was Demetra Faust RN. Left Ventricle * The left ventricle is grossly normal size. * There is mild concentric left ventricular hypertrophy. * Ejection Fraction = 60-65%. * No regional wall motion abnormalities noted. Right Ventricle * The right ventricle is grossly normal size. * The right ventricle is not well visualized. Atria * The left atrium is not well visualized. * Right atrium not well visualized. * No ASD detected; PFO is not assessed. Mitral Valve * The mitral valve is grossly normal. * There is no mitral valve stenosis. * Significant mitral regurgitation is absent. Tricuspid Valve * There is trace tricuspid regurgitation. Aortic Valve * Aortic valve sclerosis mild, without significant aortic valvular stenosis. * No hemodynamically significant valvular aortic stenosis. * Trace aortic regurgitation. Pulmonic Valve * The pulmonary valve is inadequately visualized, but the Doppler data is adequate for interpretation. * There is no pulmonic valvular stenosis. * There is no significant pulmonary regurgitation. Great Vessels * The aortic root and proximal ascending aorta are normal sized. Pericardium/Pleural * Trivial pericardial effusion Left Ventricular Diastolic Function * Grade I diastolic dysfunction, (abnormal relaxation pattern). MMode 2D Measurements and Calculations IVSd 0.99 cm LVIDd 3.9 cm LVIDs 2.7 cm LVPWd 1.1 cm IVS/LVPW 0.94 FS 30.2 % EDV(Teich) 67.4 ml ESV(Teich) 28.3 ml EF(Teich) 58.1 % EDV(cubed) 61.0 ml ESV(cubed) 20.8 ml EF(cubed) 65.9 % LV mass(C)d 127.8 grams LV mass(C)dI 68.8 grams/m\S\2 SV(Teich) 39.1 ml SI(Teich) 21.1 ml/m\S\2 SV(cubed) 40.2 ml SI(cubed) 21.7 ml/m\S\2 Ao root diam 2.6 cm Ao root area 5.1 cm\S\2 ACS 1.9 cm LA dimension 2.5 cm asc Aorta Diam 2.6 cm LA/Ao 0.96 LVOT diam 1.9 cm LVOT area 2.7 cm\S\2 LVAd ap4 14.5 cm\S\2 LVLd ap4 4.9 cm EDV(MOD-sp4) 34.8 ml EDV(sp4-el) 36.2 ml LVAs ap4 8.0 cm\S\2 LVLs ap4 4.4 cm ESV(MOD-sp4) 12.4 ml ESV(sp4-el) 12.4 ml EF(MOD-sp4) 64.4 % EF(sp4-el) 65.8 % LVAd ap2 15.3 cm\S\2 LVLd ap2 5.2 cm EDV(MOD-sp2) 35.2 ml EDV(sp2-el) 37.8 ml LVAs ap2 9.0 cm\S\2 LVLs ap2 4.4 cm ESV(MOD-sp2) 15.0 ml ESV(sp2-el) 15.6 ml EF(MOD-sp2) 57.5 % EF(sp2-el) 58.7 % LVLd %diff 5.6 % EDV(MOD-bp) 36.4 ml LVLs %diff 0.24 % ESV(MOD-bp) 13.7 ml EF(MOD-bp) 62.4 % SV(MOD-sp4) 22.4 ml SI(MOD-sp4) 12.1 ml/m\S\2 SV(MOD-sp2) 20.2 ml SI(MOD-sp2) 10.9 ml/m\S\2 SV(MOD-bp) 22.7 ml SI(MOD-bp) 12.2 ml/m\S\2 SV(sp4-el) 23.8 ml SI(sp4-el) 12.8 ml/m\S\2 SV(sp2-el) 22.2 ml SI(sp2-el) 11.9 ml/m\S\2 Doppler Measurements and Calculations MV E max tena 84.9 cm/sec MV A max tena 114.0 cm/sec MV E/A 0.74 MV dec time 0.27 sec Ao V2 max 94.3 cm/sec Ao max PG 3.6 mmHg Ao max PG (full) 1.1 mmHg STEFANIE(V,A) 2.3 cm\S\2 STEFANIE(V,D) 2.3 cm\S\2 LV V1 max PG 2.5 mmHg LV V1 max 79.1 cm/sec PA V2 max 95.0 cm/sec PA max PG 3.6 mmHg PA acc slope 482.2 cm/sec\S\2 PA acc time 0.14 sec PA pr(Accel) 15.6 mmHg
[2017-12-19] MEDS: SIMVASTATIN 40 MG TAB PO SCH (20:56)
[2017-12-20] VITALS (11 sets, daily range): BP systolic 111–157; BP diastolic 61–88; PULSE 64–71; TEMP 36.3–37.1; O2SAT 94–98
[2017-12-20 02:52] LABS: HEMATOCRIT 27.5 % (37-47); HEMOGLOBIN 9.5 g/dL (12.0-16.0); MEAN CELL VOLUME 92.6 fL (80-100); MEAN CORPUSCULAR HGB CONC 34.5 g/dl (32-36); MEAN PLATELET VOLUME 9.7 fL (7.4-10.4); PLATELET COUNT 173 K/uL (130-400); RED CELL DISTRIBUTION WIDTH SD 47.5 fL (36.4-46.3)
[2017-12-20 03:10] LABS: CALCIUM 7.1 mg/dl (8.5-10.1); CREATININE 2.35 mg/dl (0.60-1.20); POTASSIUM 3.2 mmol/L (3.5-5.1)
[2017-12-20 03:15] LABS: INR 1.5 (0.9-1.1)
[2017-12-20 03:19] LABS: PTT PATIENT 90.6 SECONDS (21.0-31.0)
[2017-12-20] MEDS: LEVOTHYROXINE 88 MCG TAB PO SCH (05:03)
[2017-12-20] MEDS ORDERED: POTASSIUM CHLORIDE 20 MEQ TABCR PO ONE (07:30)
[2017-12-20 08:22] LABS: PTT PATIENT 72.1 SECONDS (21.0-31.0)
[2017-12-20] MEDS: HEPARIN 25,000 UNIT/500ML D5W 500 ML IV PRN (08:37)
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
[2017-12-20] MEDS: INSULIN ASPART 100 UNITS/ML 3 ML PEN SC SCH ×4 (09:04→21:15)
[2017-12-20] MEDS: DULOXETINE (CYMBALTA) 30 MG CAP PO SCH (09:07)
[2017-12-20] MEDS: METOPROLOL TARTRATE 50 MG TAB PO SCH ×2 (09:07→21:10)
--- NOTE | 2017-12-20 10:03 | DIAGNOSTIC IMAGING REPORT ---
THORACIC SPINE 2-VIEWS CLINICAL HISTORY: Thoracic back pain. Status post fall. COMPARISON STUDY: Chest CT April 18, 2016 and chest radiograph November 10, 2008. FINDINGS: Note is made of mild dextroscoliosis of the mid to lower thoracic spine. A mild L1 compression deformity is unchanged since CT of August 23, 2011. Mild multilevel degenerative disc disease is present. No acute thoracic spine fracture is identified on this exam. IMPRESSION: 1. No acute thoracic spine fracture. 2. No change in old mild L1 compression fracture. Electronically signed by: Aleksandr Jiménez M.D. 12/20/2017 10:02 AM Dictated Date/Time: 12/20/2017 10:00 AM
--- NOTE | 2017-12-20 10:27 | DIAGNOSTIC IMAGING REPORT ---
R RIBS UNILATERAL WITH PA CHEST CLINICAL HISTORY: 87 years-old Female presenting with TRAUMA, FALL. TECHNIQUE: Frontal and oblique views of the right ribs as well as PA view of the chest were obtained. COMPARISON: Chest x-ray from 12/18/2017. FINDINGS: Atherosclerosis of aortic arch. Cardiac silhouette moderately enlarged. Lungs and pleural spaces clear. No displaced right rib fracture. Degenerative changes of the spine. Osteopenia may be present. IMPRESSION: 1. No acute displaced right rib fracture. 2. No acute cardiopulmonary disease. 3. Cardiomegaly. Electronically signed by: Qasim Fernandez M.D. 12/20/2017 10:26 AM Dictated Date/Time: 12/20/2017 10:24 AM
[2017-12-20] MEDS: CEFTRIAXONE SOD INJ 1 GM in DEXTROSE 5% ADD-VANTAGE 50ML 50 ML IV SCH (12:39)
--- NOTE | 2017-12-20 14:22 | Cardiology Follow-Up ---
Subjective Date of Service: Dec 20, 2017. Pt evaluation today including: conversation w/ patient, physical exam, lab review, review of studies, review of inpatient medication list History of Present Illness Today she is still complaining of feeling very tired and weak, she denies palpitations. She does not have any chest symptoms. Social History Smoking Status: Unknown if Ever Smoked History of Alcohol Use: No Review of Systems Respiratory: + cough, No sputum, No shortness of breath Cardiac: No chest pain Medications Cardiovascular: Item Value Date Time Metoprolol 100 mg 12/19/17 2100 Tartrate BID/PO 12/20/17 0907 (Lopressor Tab) Simvastatin 40 mg 12/18/172099 (Zocor Tab) QPM/PO 12/19/172055 Warfarin Sodium 3 mg 12/18/172099 (Coumadin Tab) DAILY@1600/PO 12/19/17 1600 Objective Vital Signs Past 12 Hours Date Time Temp Pulse Resp B/P (MAP) Pulse Ox O2 Delivery O2 Flow Rate FiO2 12/20/17 12:17 95 Room Air 12/20/17 12:09 36.7 71 16 111/65 (80) 95 Room Air 12/20/17 12:00 Nasal Cannula 2.0 12/20/17 11:35 95 Room Air 12/20/17 08:00 Nasal Cannula 2.0 12/20/17 07:48 36.4 71 20 115/72 (86) 95 Room Air 12/20/17 07:47 36.4 71 20 115/72 (86) 95 Room Air 12/20/17 04:51 36.8 68 18 157/88 (111) 95 Room Air 12/20/17 04:05 Nasal Cannula 2.0 Last Recorded Weight-Kilograms: 87.800 Physical Exam Constitutional: Level of Distress: NAD Lungs: Auscultation: breath sounds normal Cardiovascular: Heart Auscultation: RRR, no murmurs Extremities: no edema Data Laboratory Results: Last 24 Hours Test 12/19/17 16:27 12/19/17 16:54 12/19/17 18:40 12/19/17 20:42 Bedside Glucose 171 mg/dl 144 mg/dl Troponin I 0.365 ng/ml Activated Partial Thromboplast Time 113.0 SECONDS Partial Thromboplastin Ratio 4.3 Test 12/20/17 02:40 12/20/17 07:31 12/20/17 07:45 12/20/17 11:18 White Blood Count 7.70 K/uL Red Blood Count 2.97 M/uL Hemoglobin 9.5 g/dL Hematocrit 27.5 % Mean Corpuscular Volume 92.6 fL Mean Corpuscular Hemoglobin 32.0 pg Mean Corpuscular Hemoglobin Concent 34.5 g/dl RDW Standard Deviation 47.5 fL RDW Coefficient of Variation 14.0 % Platelet Count 173 K/uL Mean Platelet Volume 9.7 fL Prothrombin Time 15.9 SECONDS Prothromb Time International Ratio 1.5 Activated Partial Thromboplast Time 90.6 SECONDS 72.1 SECONDS Partial Thromboplastin Ratio 3.5 2.8 Sodium Level 138 mmol/L Potassium Level 3.2 mmol/L Chloride Level 108 mmol/L Carbon Dioxide Level 20 mmol/L Anion Gap 10.0 mmol/L Blood Urea Nitrogen 54 mg/dl Creatinine 2.35 mg/dl Est Creatinine Clear Calc Drug Dose 17.4 ml/min Estimated GFR () 21.0 Estimated GFR (Non- 18.1 BUN/Creatinine Ratio 23.0 Random Glucose 127 mg/dl Calcium Level 7.1 mg/dl Bedside Glucose 118 mg/dl 146 mg/dl Imaging: Echocardiography shows normal left ventricular size and function, left ventricular hypertrophy and diastolic dysfunction. Telemetry reviewed: Sinus rhythm and sinus bradycardia, no further atrial fibrillation Assessment and Plan 1. Atrial fibrillation: She has had no further atrial fibrillation since admission. On presentation she was in atrial fibrillation with a very rapid heart rate, I believe she is on a higher dose of beta-kim now (100 mg twice daily of metoprolol rather than 50 mg twice daily). This may be sufficient to control the rate if she develops atrial fibrillation. If not we can add other medications, possibly digoxin. She should remain on warfarin. For now I would not add an anti-arrhythmic. 2. Weakness: I am not sure why she has weakness, but I do not think it is cardiac. Her left ventricular function is good and she is in normal rhythm. I would continue to treat her other issues. Thank you for allowing me to participate in her care.
[2017-12-20 14:57] LABS: PTT PATIENT 67.1 SECONDS (21.0-31.0)
[2017-12-20] MEDS: WARFARIN SOD 3 MG TAB PO SCH (15:49)
[2017-12-20] MEDS ORDERED: LIDODERM (LIDOCAINE) PATCH 5% TD ONE (16:00)
[2017-12-20] MEDS: SIMVASTATIN 40 MG TAB PO SCH (21:10)
[2017-12-21] VITALS (17 sets, daily range): BP systolic 79–168; BP diastolic 48–81; PULSE 51–83; TEMP 36.3–36.8; O2SAT 92–99
[2017-12-21] MEDS: LEVOTHYROXINE 88 MCG TAB PO SCH (06:08)
[2017-12-21] MEDS: CEPHALEXIN MONOHYDRATE 250 MG CAP PO SCH ×2 (07:20→20:46)
[2017-12-21] MEDS: LIDODERM (LIDOCAINE) PATCH 5% TD SCH (07:21)
[2017-12-21] MEDS: METOPROLOL TARTRATE 50 MG TAB PO SCH ×2 (07:21→20:46)
[2017-12-21] MEDS: DULOXETINE (CYMBALTA) 30 MG CAP PO SCH (07:21)
[2017-12-21 07:44] LABS: INR 1.9 (0.9-1.1)
[2017-12-21 07:46] LABS: PTT PATIENT 62.3 SECONDS (21.0-31.0)
[2017-12-21 08:06] LABS: CALCIUM 7.5 mg/dl (8.5-10.1); CREATININE 2.51 mg/dl (0.60-1.20); POTASSIUM 4.2 mmol/L (3.5-5.1)
[2017-12-21] MEDS: INSULIN ASPART 100 UNITS/ML 3 ML PEN SC SCH ×4 (08:09→20:48)
[2017-12-21] MEDS ORDERED: SODIUM CHLORIDE 0.9% 500ML 500 ML IV SCH (11:15)
[2017-12-21 11:22] LABS: HEMATOCRIT 22.7 % (37-47); HEMOGLOBIN 7.7 g/dL (12.0-16.0); MEAN CELL VOLUME 93.4 fL (80-100); MEAN CORPUSCULAR HEMOGLOBIN 31.7 pg (25-34); MEAN PLATELET VOLUME 10.6 fL (7.4-10.4); NUCLEATED RED BLOOD CELL ABS 0.03 K/uL (0-0); PLATELET COUNT 208 K/uL (130-400); RED CELL DISTRIBUTION WIDTH SD 48.3 fL (36.4-46.3); WHITE BLOOD COUNT 12.21 K/uL (4.8-10.8)
[2017-12-21 11:25] LABS: MEAN CORPUSCULAR HGB CONC 33.9 g/dl (32-36)
[2017-12-21] MEDS: MAGNESIUM SULFATE 1GM / D5W 1 GM in PREMIXED IN D5W 100 ML IV SCH ×2 (11:34→12:41)
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
[2017-12-21 12:05] LABS: BASO % 0.2 %; BASO ABS # 0.02 K/uL (0-0.2); IG# 0.52 K/uL (0.00-0.02); LYMPH % 18.8 %; LYMPH ABS # 2.29 K/uL (1.2-3.4); MONO % 7.5 %; MONO ABS # 0.91 K/uL (0.11-0.59); NEUT % 69.2 %; NEUT ABS # 8.47 K/uL (1.4-6.5)
--- NOTE | 2017-12-21 17:55 | DIAGNOSTIC IMAGING REPORT ---
CT OF THE ABDOMEN AND PELVIS WITHOUT CONTRAST CLINICAL HISTORY: Acute anemia. Right mid back hematoma. Evaluate for retroperitoneal hematoma. COMPARISON STUDY: CT of the abdomen and pelvis August 23, 2011 and renal ultrasound October 20, 2014. TECHNIQUE: Axial images of the abdomen and pelvis were obtained without IV contrast. Images were reviewed in the axial, sagittal, and coronal planes. A dose lowering technique was utilized adhering to the principles of ALARA. FINDINGS: Lung bases are clear. Note is made of multiple hematomas which contain hematocrit levels within the subcutaneous tissues of the right flank. In aggregate, these measure 10.5 x 9.2 x 6 cm. Subcutaneous stranding extends into the lateral right thigh and right lower back. Small subcutaneous left flank hematoma is noted that measures 2.8 x 1.4 cm. No retroperitoneal hematoma is present. No acute lumbar spine or pelvic fracture is present. Note is made of mild infiltration along the inferior aspect of the gallbladder. Gallstone is noted within the gallbladder. The gallbladder is not distended. Evaluation of the solid abdominal viscera is suboptimal on this unenhanced exam. Unenhanced images of the liver, spleen, adrenal glands, left kidney and pancreas are unremarkable. There is a suspected 1.4 cm right renal cyst. There is no evidence for a bowel obstruction. A fat-containing umbilical hernia is noted. A Britt balloon is present within the bladder which is collapsed. There is a calcified left uterine fundal fibroid. Note is made of colonic diverticulosis without evidence for acute diverticulitis. IMPRESSION: 1. Multiple right flank, right lower back and right thigh subcutaneous hematomas with associated stranding. Small left buttock hematoma. No retroperitoneal hematoma. 2. Mild infiltration/stranding along the inferior aspect of the gallbladder. This is nonspecific and may be posttraumatic. Given a gallstone within the gallbladder, cholecystitis is within the differential although considered slightly less likely. 3. Suboptimal evaluation of the solid abdominal viscera given lack of IV contrast. Electronically signed by: Aleksandr Jiménez M.D. 12/21/2017 5:54 PM Dictated Date/Time: 12/21/2017 5:36 PM
[2017-12-21 18:00] LABS: HEMATOCRIT 27.8 % (37-47); HEMOGLOBIN 9.6 g/dL (12.0-16.0)
[2017-12-21] MEDS: SIMVASTATIN 40 MG TAB PO SCH (20:46)
[2017-12-22] VITALS (9 sets, daily range): BP systolic 115–174; BP diastolic 55–75; PULSE 55–93; TEMP 36.4–37; O2SAT 95–98
[2017-12-22] MEDS: LEVOTHYROXINE 88 MCG TAB PO SCH (06:21)
[2017-12-22 06:57] LABS: HEMATOCRIT 29.3 % (37-47); HEMOGLOBIN 10.1 g/dL (12.0-16.0); MEAN CELL VOLUME 89.9 fL (80-100); MEAN CORPUSCULAR HGB CONC 34.5 g/dl (32-36); MEAN PLATELET VOLUME 10.4 fL (7.4-10.4); NUCLEATED RED BLOOD CELL ABS 0.09 K/uL (0-0); PLATELET COUNT 182 K/uL (130-400); RED CELL DISTRIBUTION WIDTH CV 14.9 % (11.5-14.5); WHITE BLOOD COUNT 13.05 K/uL (4.8-10.8)
[2017-12-22 07:08] LABS: INR 1.8 (0.9-1.1)
[2017-12-22 07:26] LABS: CALCIUM 7.1 mg/dl (8.5-10.1); CREATININE 2.61 mg/dl (0.60-1.20); POTASSIUM 3.9 mmol/L (3.5-5.1)
[2017-12-22 07:32] LABS: PHOSPHORUS 2.9 mg/dl (2.5-4.9)
[2017-12-22] MEDS: DULOXETINE (CYMBALTA) 30 MG CAP PO SCH (09:22)
[2017-12-22] MEDS: METOPROLOL TARTRATE 50 MG TAB PO SCH ×2 (09:23→20:59)
[2017-12-22] MEDS: CEPHALEXIN MONOHYDRATE 250 MG CAP PO SCH ×2 (09:23→20:59)
[2017-12-22] MEDS: LIDODERM (LIDOCAINE) PATCH 5% TD SCH (09:24)
[2017-12-22] MEDS: INSULIN ASPART 100 UNITS/ML 3 ML PEN SC SCH ×4 (09:26→21:20)
--- NOTE | 2017-12-22 12:42 | Nephrology Progress Note ---
Nephrology Progress Note Date of Service Dec 22, 2017. Chief Complaint KEILY Subjective No acute events overnight. Maren reports improved pain control. She denies any melena or hematochezia. She denies abdominal pain. Appetite is fair. Activity tolerance is poor. She reports some mild lightheadedness this morning. She denies chest pain or palpitations. Review of Systems A complete review of systems was performed. Pertinent positives are noted above. All other systems are negative. Vital Signs Last 8 Hrs Date Time Temp Pulse Resp B/P (MAP) Pulse Ox O2 Delivery O2 Flow Rate FiO2 12/22/17 12:01 37.0 93 20 115/71 (86) 98 Room Air 12/22/17 08:00 Room Air 12/22/17 07:04 36.6 59 18 161/74 (103) 96 Room Air Last Recorded Weight Weight (Kilograms): 91.700 Physical Exam General Appearance: WD/WN, no apparent distress, + obese Head: normocephalic, atraumatic Eyes: normal inspection, sclerae normal ENT: normal ENT inspection, pharynx normal Neck: supple, no JVD Respiratory/Chest: lungs clear, no respiratory distress, no accessory muscle use Cardiovascular: regular rate, rhythm, no gallop Abdomen/GI: non tender, soft Genitourinary - Female: + pertinent finding (Britt draining clear yellow urine ) Neurologic/Psych: alert, normal mood/affect Social History Smoking Status: Never smoker Marital Status: Occupation: retired Laboratory Results Past 24 Hours 12/21/17 17:16 12/22/17 06:33 12/22/17 06:33 Test 12/21/17 16:27 12/21/17 20:18 12/22/17 05:00 12/22/17 06:33 Bedside Glucose 179 mg/dl (70-90) 174 mg/dl (70-90) Stool Occult Blood POSITIVE (NEGATIVE) Red Blood Count 3.26 M/uL (4.2-5.4) Mean Corpuscular Volume 89.9 fL (80-100) Mean Corpuscular Hemoglobin 31.0 pg (25-34) Mean Corpuscular Hemoglobin Concent 34.5 g/dl (32-36) RDW Standard Deviation 49.0 fL (36.4-46.3) RDW Coefficient of Variation 14.9 % (11.5-14.5) Mean Platelet Volume 10.4 fL (7.4-10.4) Nucleated RBC Absolute Count (auto) 0.09 K/uL (0-0) Nucleated Red Blood Cells % 0.7 % Prothrombin Time 18.4 SECONDS (9.0-12.0) Prothromb Time International Ratio 1.8 (0.9-1.1) Anion Gap 11.0 mmol/L (3-11) Est Creatinine Clear Calc Drug Dose 16.3 ml/min Estimated GFR () 18.5 Estimated GFR (Non- 16.0 BUN/Creatinine Ratio 25.7 (10-20) Calcium Level 7.1 mg/dl (8.5-10.1) Phosphorus Level 2.9 mg/dl (2.5-4.9) Magnesium Level 2.2 mg/dl (1.8-2.4) Iron Level 99 mcg/dl (35-150) Total Iron Binding Capacity 241 mcg/dl (250-450) Transferrin 191 mg/dl (200-360) Transferrin % Saturation 37 % (15-50) Ferritin 185.7 ng/ml (8.0-388.0) 25-Hydroxy Vitamin D Total 14.1 ng/ml (30-100) Parathyroid Hormone (Intact) 151.6 pg/mL (18.4-80.1) Test 12/22/17 07:11 12/22/17 11:35 Bedside Glucose 125 mg/dl (70-90) 159 mg/dl (70-90) Allergies Coded Allergies: No Known Allergies (Verified , 12/18/17) Medications Current Inpatient Medications Medications (Trade) Dose Ordered Sig/Heri Route Start Time Stop Time Status Last Admin Dose Admin Duloxetine HCl (Cymbalta Cap) 30 mg QAM PO 12/19/17 09:00 01/18/18 08:59 12/22/17 09:22 30 MG Levothyroxine Sodium (Synthroid Tab) 88 mcg DAILYBB PO 12/19/17 06:30 01/18/18 06:59 12/22/17 06:21 88 MCG Simvastatin (Zocor Tab) 40 mg QPM PO 12/18/17 21:00 01/17/18 20:59 12/21/17 20:46 40 MG Acetaminophen (Tylenol Tab) 650 mg Q4H PRN PO 12/18/17 16:45 3/15/18 16:44 Al Hydrox/Mg Hydrox/Simethicone (Maalox Max Susp) 15 ml Q4H PRN PO 12/18/17 16:45 01/17/18 16:44 12/22/17 00:18 15 ML Magnesium Hydroxide (Milk Of Magnesia Susp) 30 ml Q12H PRN PO 12/18/17 16:45 01/17/18 16:44 Zolpidem Tartrate (Ambien Tab) 5 mg HSZ PRN PO 12/18/17 16:45 01/17/18 16:44 Ondansetron HCl (Zofran Inj) 4 mg Q6H PRN IV 12/18/17 16:45 01/17/18 16:44 Polyethylene (Miralax Powder Packet) 17 gm DAILY PRN PO 12/18/17 16:45 01/17/18 16:44 Insulin Aspart (novoLOG ASPART) SLIDING SCALE If C... ACHS SC 12/18/17 21:00 01/17/18 20:59 12/22/17 12:20 2 UNITS Glucose (Glucose 40% Gel) 15-30 GRAMS 15 GRAMS... UD PRN PO 12/18/17 16:45 01/17/18 16:44 Glucose (Glucose Chew Tab) 4-8 Tablets 4 Tabl... UD PRN PO 12/18/17 16:45 01/17/18 16:44 Dextrose (Dextrose 50% 50ML Syringe) 25-50ML OF 50% DW IV FOR... UD PRN IV 12/18/17 16:45 01/17/18 16:44 Glucagon (Glucagon Inj) 1 mg UD PRN SQ 12/18/17 16:45 01/17/18 16:44 Metoprolol Tartrate (Lopressor Tab) 100 mg BID PO 12/19/17 21:00 01/17/18 20:59 12/22/17 09:23 100 MG Prednisone (PredniSONE TAB) 30 mg Taper DAILY PO 12/20/17 09:00 12/27/17 08:59 12/22/17 09:21 30 MG Cephalexin Monohydrate (Keflex Cap) 250 mg BID PO 12/21/17 09:00 12/26/17 08:59 2/17/18 09:23 250 MG Lidocaine (Lidoderm Patch 5%) 1 patch QAM TD 12/21/17 09:00 01/20/18 08:59 12/22/17 09:24 1 PATCH Miscellaneous (Remove Lidoderm Patch) 1 ea DAILY@21 N/A 12/20/17 21:00 01/19/18 20:59 12/20/17 21:12 1 EA Impression (1) Chronic kidney disease (CKD) stage G3b/A1, moderately decreased glomerular filtration rate (GFR) between 30-44 mL/min/1.73 square meter and albuminuria creatinine ratio less than 30 mg/g (2) KEILY (acute kidney injury) (3) Fall (4) Anemia (5) SVT (supraventricular tachycardia) Maren is an 87-year-old female with acute renal insufficiency superimposed on chronic kidney disease. The patient presented with significant diffuse bruising including several hematomas resulting from a fall at home. She had SVT on arrival. Hospital course has been complicated by episodes of hypotension as well as acute anemia. KEILY is consistent with ATN. UA/microscopy documenting granular cast. CT of the abdomen revealed normal appearing kidneys with a 1.4 cm right renal cyst. There was no evidence of obstruction. The patient is non oliguric. Britt is draining clear yellow urine. CPK was found to be 250. The patient has evidence of CKD/MBD including secondary hyperparathyroidism with 25OH D deficiency. Metabolic profile is otherwise appropriate. There is no need for [employer] at this time. Medications are appropriately dosed for renal function. Blood pressure is currently acceptable. Recommendations KEILY: -- Medications are appropriate for renal function -- Monitor metabolic profile daily -- Document I/O's -- Volume status acceptable, maintain even to slightly positive fluid balance -- Encourage nutrition CKD: -- Outpatient follow up will be arranged -- Baseline creatinine 2.0 mg/dL CKD/MBD: -- Ergocalciferol 19630 IU weekly Anemia: -- Secondary to acute blood loss -- Will monitor
[2017-12-22] MEDS ORDERED: ERGOCALCIFEROL 50,000 INTER.UNIT CAP PO ONE (17:00)
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
[2017-12-22] MEDS: SIMVASTATIN 40 MG TAB PO SCH (20:58)
[2017-12-23] VITALS (9 sets, daily range): BP systolic 101–156; BP diastolic 60–89; PULSE 56–74; TEMP 36.3–36.9; O2SAT 95–98
[2017-12-23] MEDS: LEVOTHYROXINE 88 MCG TAB PO SCH (06:32)
[2017-12-23 07:09] LABS: HEMATOCRIT 26.1 % (37-47); HEMOGLOBIN 9.1 g/dL (12.0-16.0); MEAN CELL VOLUME 91.6 fL (80-100); MEAN CORPUSCULAR HEMOGLOBIN 31.9 pg (25-34); MEAN CORPUSCULAR HGB CONC 34.9 g/dl (32-36); MEAN PLATELET VOLUME 10.3 fL (7.4-10.4); NUCLEATED RED BLOOD CELL ABS 0.07 K/uL (0-0); PLATELET COUNT 183 K/uL (130-400); RED CELL DISTRIBUTION WIDTH CV 15.1 % (11.5-14.5); WHITE BLOOD COUNT 11.27 K/uL (4.8-10.8)
[2017-12-23 07:54] LABS: CALCIUM 7.7 mg/dl (8.5-10.1); CREATININE 2.11 mg/dl (0.60-1.20)
[2017-12-23] MEDS: LIDODERM (LIDOCAINE) PATCH 5% TD SCH (08:24)
[2017-12-23] MEDS: METOPROLOL TARTRATE 50 MG TAB PO SCH ×2 (08:24→20:56)
[2017-12-23] MEDS: DULOXETINE (CYMBALTA) 30 MG CAP PO SCH (08:24)
[2017-12-23] MEDS: CEPHALEXIN MONOHYDRATE 250 MG CAP PO SCH ×2 (08:25→20:56)
[2017-12-23] MEDS: INSULIN ASPART 100 UNITS/ML 3 ML PEN SC SCH ×4 (08:28→20:58)
[2017-12-23 09:37] LABS: INR 1.6 (0.9-1.1)
--- NOTE | 2017-12-23 11:22 | Nephrology Progress Note ---
Nephrology Progress Note Date of Service Dec 23, 2017. Chief Complaint KEILY Subjective No acute events overnight. Maren is tired this morning but overall has no complaints. She denies significant pain. She has not tried getting out of bed. Appetite is good. She denies shortness of breath. No urinary complaints at this time. Review of Systems A complete review of systems was performed. Pertinent positives are noted above. All other systems are negative. Vital Signs Last 8 Hrs Date Time Temp Pulse Resp B/P (MAP) Pulse Ox O2 Delivery O2 Flow Rate FiO2 12/23/17 08:00 Room Air 12/23/17 07:45 36.3 59 24 137/60 (85) 97 Room Air 12/23/17 04:00 Room Air 12/23/17 03:49 36.9 56 20 156/75 (102) 97 Room Air Last Recorded Weight Weight (Kilograms): 91.000 Physical Exam General Appearance: WD/WN, no apparent distress Head: normocephalic, atraumatic Eyes: normal inspection, sclerae normal ENT: normal ENT inspection, pharynx normal Neck: supple, no JVD Respiratory/Chest: lungs clear, no respiratory distress, no accessory muscle use Cardiovascular: regular rate, rhythm, no gallop, no murmur Abdomen/GI: non tender, soft Extremities/Musculoskelatal: normal inspection, no pedal edema Neurologic/Psych: alert, normal mood/affect Social History Smoking Status: Never smoker Marital Status: Occupation: retired Laboratory Results Past 24 Hours 12/23/17 06:39 12/23/17 06:39 Test 12/22/17 11:35 12/22/17 16:11 12/22/17 20:48 12/23/17 06:39 Bedside Glucose 159 mg/dl (70-90) 195 mg/dl (70-90) 209 mg/dl (70-90) Red Blood Count 2.85 M/uL (4.2-5.4) Mean Corpuscular Volume 91.6 fL (80-100) Mean Corpuscular Hemoglobin 31.9 pg (25-34) Mean Corpuscular Hemoglobin Concent 34.9 g/dl (32-36) RDW Standard Deviation 50.0 fL (36.4-46.3) RDW Coefficient of Variation 15.1 % (11.5-14.5) Mean Platelet Volume 10.3 fL (7.4-10.4) Nucleated RBC Absolute Count (auto) 0.07 K/uL (0-0) Nucleated Red Blood Cells % 0.6 % Anion Gap 11.0 mmol/L (3-11) Est Creatinine Clear Calc Drug Dose 20.1 ml/min Estimated GFR () 24.0 Estimated GFR (Non- 20.7 BUN/Creatinine Ratio 31.1 (10-20) Calcium Level 7.7 mg/dl (8.5-10.1) Magnesium Level 2.3 mg/dl (1.8-2.4) Test 12/23/17 07:50 12/23/17 09:16 Bedside Glucose 164 mg/dl (70-90) Prothrombin Time 16.3 SECONDS (9.0-12.0) Prothromb Time International Ratio 1.6 (0.9-1.1) Allergies Coded Allergies: No Known Allergies (Verified , 12/18/17) Medications Current Inpatient Medications Medications (Trade) Dose Ordered Sig/Heri Route Start Time Stop Time Status Last Admin Dose Admin Duloxetine HCl (Cymbalta Cap) 30 mg QAM PO 12/19/17 09:00 01/18/18 08:59 12/23/17 08:24 30 MG Levothyroxine Sodium (Synthroid Tab) 88 mcg DAILYBB PO 12/19/17 06:30 01/18/18 06:59 12/23/17 06:32 88 MCG Simvastatin (Zocor Tab) 40 mg QPM PO 12/18/17 21:00 01/17/18 20:59 12/22/17 20:58 40 MG Acetaminophen (Tylenol Tab) 650 mg Q4H PRN PO 12/18/17 16:45 01/17/18 16:44 Al Hydrox/Mg Hydrox/Simethicone (Maalox Max Susp) 15 ml Q4H PRN PO 12/18/17 16:45 01/17/18 16:44 12/22/17 00:18 15 ML Magnesium Hydroxide (Milk Of Magnesia Susp) 30 ml Q12H PRN PO 12/18/17 16:45 01/17/18 16:44 Zolpidem Tartrate (Ambien Tab) 5 mg HSZ PRN PO 12/18/17 16:45 01/17/18 16:44 Ondansetron HCl (Zofran Inj) 4 mg Q6H PRN IV 12/18/17 16:45 01/17/18 16:44 Polyethylene (Miralax Powder Packet) 17 gm DAILY PRN PO 12/18/17 16:45 01/17/18 16:44 Insulin Aspart (novoLOG ASPART) SLIDING SCALE If C... ACHS SC 12/18/17 21:00 01/17/18 20:59 12/23/17 08:28 3 UNITS Glucose (Glucose 40% Gel) 15-30 GRAMS 15 GRAMS... UD PRN PO 12/18/17 16:45 01/17/18 16:44 Glucose (Glucose Chew Tab) 4-8 Tablets 4 Tabl... UD PRN PO 12/18/17 16:45 01/17/18 16:44 Dextrose (Dextrose 50% 50ML Syringe) 25-50ML OF 50% DW IV FOR... UD PRN IV 12/18/17 16:45 01/17/18 16:44 Glucagon (Glucagon Inj) 1 mg UD PRN SQ 12/18/17 16:45 01/17/18 16:44 Metoprolol Tartrate (Lopressor Tab) 100 mg BID PO 12/19/17 21:00 01/17/18 20:59 12/23/17 08:24 100 MG Prednisone (PredniSONE TAB) 20 mg Taper DAILY PO 12/20/17 09:00 12/27/17 08:59 12/23/17 08:24 20 MG Cephalexin Monohydrate (Keflex Cap) 250 mg BID PO 12/21/17 09:00 12/26/17 08:59 12/23/17 08:25 250 MG Lidocaine (Lidoderm Patch 5%) 1 patch QAM TD 12/21/17 09:00 01/20/18 08:59 12/23/17 08:24 1 PATCH Miscellaneous (Remove Lidoderm Patch) 1 ea DAILY@21 N/A 12/20/17 21:00 01/19/18 20:59 12/22/17 21:00 1 EA Impression (1) Chronic kidney disease (CKD) stage G3b/A1, moderately decreased glomerular filtration rate (GFR) between 30-44 mL/min/1.73 square meter and albuminuria creatinine ratio less than 30 mg/g (2) KEILY (acute kidney injury) (3) Fall (4) Anemia (5) SVT (supraventricular tachycardia) Maren is an 87-year-old female with acute renal insufficiency superimposed on chronic kidney disease. The patient presented with significant diffuse bruising including several hematomas resulting from a fall at home. She had SVT on arrival. Hospital course has been complicated by episodes of hypotension as well as acute anemia. KEILY is consistent with ATN. UA/microscopy documenting granular cast. CT of the abdomen revealed normal appearing kidneys with a 1.4 cm right renal cyst. There was no evidence of obstruction. The patient is non oliguric. Britt is draining clear yellow urine. CPK was found to be 250. The patient has evidence of CKD/MBD including secondary hyperparathyroidism with 25OH D deficiency. Metabolic profile is otherwise appropriate. There is no need for CARDIO CLINICIAN at this time. Medications are appropriately dosed for renal function. Blood pressure is currently acceptable. Recommendations KEILY: -- No showing evidence of renal recovery -- Medications are appropriate for renal function -- Monitor metabolic profile daily -- Document I/O's -- Volume status acceptable, maintain even to slightly positive fluid balance -- Encourage nutrition CKD: -- Outpatient follow up will be arranged -- Baseline creatinine 2.0 mg/dL CKD/MBD: -- Ergocalciferol 63942 IU weekly Anemia: -- Secondary to acute blood loss -- Will monitor
--- NOTE | 2017-12-23 11:28 | Cardiology Follow-Up ---
Subjective Date of Service: Dec 23, 2017. Pt evaluation today including: conversation w/ patient, conversation w/ family , physical exam, lab review, review of studies, review of inpatient medication list History of Present Illness She seems to be doing better to me, although she tells me that she always feels tired. She has no cardiovascular symptoms. She did have difficulty with bruising, especially her right arm. Social History Smoking Status: Unknown if Ever Smoked History of Alcohol Use: No Review of Systems Respiratory: No shortness of breath Cardiac: No chest pain Medications Cardiovascular: Item Value Date Time Metoprolol 100 mg 12/19/172099 Tartrate BID/PO 12/23/17 08 (Lopressor Tab) Simvastatin 40 mg 12/18/172099 (Zocor Tab) QPM/PO 12/22/172057 Objective Vital Signs Past 12 Hours Date Time Temp Pulse Resp B/P (MAP) Pulse Ox O2 Delivery O2 Flow Rate FiO2 12/23/17 08:00 Room Air 12/23/17 07:45 36.3 59 24 137/60 (85) 97 Room Air 12/23/17 04:00 Room Air 12/23/17 03:49 36.9 56 20 156/75 (102) 97 Room Air 12/23/17 01:05 144/69 (94) 12/23/17 00:00 Room Air 12/22/17 23:36 36.6 55 18 174/73 (106) 97 Room Air Last Recorded Weight-Kilograms: 91.000 Physical Exam Constitutional: Level of Distress: NAD Lungs: Auscultation: breath sounds normal Cardiovascular: Heart Auscultation: RRR, no murmurs, bradycardia Extremities: no edema Data Laboratory Results: Last 24 Hours Test 12/22/17 11:35 12/22/17 16:11 12/22/17 20:48 12/23/17 06:39 Bedside Glucose 159 mg/dl 195 mg/dl 209 mg/dl White Blood Count 11.27 K/uL Red Blood Count 2.85 M/uL Hemoglobin 9.1 g/dL Hematocrit 26.1 % Mean Corpuscular Volume 91.6 fL Mean Corpuscular Hemoglobin 31.9 pg Mean Corpuscular Hemoglobin Concent 34.9 g/dl RDW Standard Deviation 50.0 fL RDW Coefficient of Variation 15.1 % Platelet Count 183 K/uL Mean Platelet Volume 10.3 fL Nucleated RBC Absolute Count (auto) 0.07 K/uL Nucleated Red Blood Cells % 0.6 % Sodium Level 141 mmol/L Potassium Level 4.0 mmol/L Chloride Level 113 mmol/L Carbon Dioxide Level 17 mmol/L Anion Gap 11.0 mmol/L Blood Urea Nitrogen 66 mg/dl Creatinine 2.11 mg/dl Est Creatinine Clear Calc Drug Dose 20.1 ml/min Estimated GFR () 24.0 Estimated GFR (Non- 20.7 BUN/Creatinine Ratio 31.1 Random Glucose 163 mg/dl Calcium Level 7.7 mg/dl Magnesium Level 2.3 mg/dl Test 12/23/17 07:50 12/23/17 09:16 Bedside Glucose 164 mg/dl Prothrombin Time 16.3 SECONDS Prothromb Time International Ratio 1.6 Telemetry reviewed: Sinus bradycardia, no further atrial arrhythmias. Assessment and Plan 1. Atrial fibrillation: She has had no further atrial fibrillation since admission. On presentation she was in atrial fibrillation with a very rapid heart rate, I believe she is on a higher dose of beta-kim now (100 mg twice daily of metoprolol rather than 50 mg twice daily). This may be sufficient to control the rate if she develops atrial fibrillation. She does have bradycardia now but I do not think it is causing her symptoms therefore I would continue it, if needed can add other medications, possibly digoxin. She should remain on warfarin or some other anticoagulant over the long run. For now I would not add an anti-arrhythmic. 2. Weakness and tiredness: I am not sure why she has weakness and tiredness, but I do not think it is primarily cardiac. Her left ventricular function is good and she is in normal rhythm. Perhaps the bradycardia contributes, but she felt this way even when she was not bradycardic. I would continue to treat her other issues. Thank you for allowing me to participate in her care.
[2017-12-23] MEDS ORDERED: NURSING DECISION MEDICATION ORDER SCH (20:30)
[2017-12-23] MEDS ORDERED: MICONAZOLE NITRATE POWDER 43 GM EXT PRN (20:30)
[2017-12-23] MEDS: SIMVASTATIN 40 MG TAB PO SCH (20:56)
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
[2017-12-24] VITALS (8 sets, daily range): BP systolic 140–171; BP diastolic 68–78; PULSE 57–73; TEMP 36.3–36.7; O2SAT 94–97
[2017-12-24] MEDS: LEVOTHYROXINE 88 MCG TAB PO SCH (06:06)
[2017-12-24 06:50] LABS: INR 1.4 (0.9-1.1)
[2017-12-24 06:55] LABS: HEMATOCRIT 27.8 % (37-47); HEMOGLOBIN 9.6 g/dL (12.0-16.0); MEAN CELL VOLUME 91.7 fL (80-100); MEAN CORPUSCULAR HEMOGLOBIN 31.7 pg (25-34); MEAN CORPUSCULAR HGB CONC 34.5 g/dl (32-36); MEAN PLATELET VOLUME 9.7 fL (7.4-10.4); NUCLEATED RED BLOOD CELL ABS 0.06 K/uL (0-0); PLATELET COUNT 221 K/uL (130-400); RED CELL DISTRIBUTION WIDTH CV 15.4 % (11.5-14.5); WHITE BLOOD COUNT 14.14 K/uL (4.8-10.8)
[2017-12-24 07:20] LABS: CALCIUM 7.7 mg/dl (8.5-10.1); CREATININE 2.04 mg/dl (0.60-1.20); POTASSIUM 4.2 mmol/L (3.5-5.1)
[2017-12-24] MEDS: METOPROLOL TARTRATE 50 MG TAB PO SCH ×2 (08:19→20:40)
[2017-12-24] MEDS: CEPHALEXIN MONOHYDRATE 250 MG CAP PO SCH ×2 (08:19→20:40)
[2017-12-24] MEDS: DULOXETINE (CYMBALTA) 30 MG CAP PO SCH (08:19)
[2017-12-24] MEDS: LIDODERM (LIDOCAINE) PATCH 5% TD SCH (08:19)
[2017-12-24] MEDS: INSULIN ASPART 100 UNITS/ML 3 ML PEN SC SCH ×4 (08:21→20:45)
--- NOTE | 2017-12-24 09:28 | Nephrology Progress Note ---
Nephrology Progress Note Date of Service Dec 24, 2017. Chief Complaint KEILY Subjective No acute events overnight. No complaints this morning. Maren states that her appetite is slightly reduced. She continues to have pain and feels tired. She slept most of the day yesterday and is feeling more rested this morning. She continues to deny any urinary complaints. Review of Systems A complete review of systems was performed. Pertinent positives are noted above. All other systems are negative. Vital Signs Last 8 Hrs Date Time Temp Pulse Resp B/P (MAP) Pulse Ox O2 Delivery O2 Flow Rate FiO2 12/24/17 07:36 61 16 140/78 (98) 95 Room Air 12/24/17 04:16 36.5 63 18 171/70 (103) 96 Room Air 12/24/17 04:00 Room Air Last Recorded Weight Weight (Kilograms): 93.700 Physical Exam General Appearance: WD/WN, no apparent distress Head: normocephalic, atraumatic Eyes: normal inspection, sclerae normal ENT: normal ENT inspection, pharynx normal Neck: supple, no JVD Respiratory/Chest: lungs clear, no respiratory distress, no accessory muscle use Back: no CVA tenderness Abdomen/GI: non tender, soft Extremities/Musculoskelatal: normal inspection, no pedal edema Neurologic/Psych: alert, normal mood/affect Social History Smoking Status: Never smoker Marital Status: Occupation: retired Laboratory Results Past 24 Hours 12/24/17 06:05 12/24/17 06:05 Test 12/23/17 11:42 12/23/17 16:07 12/23/17 20:14 12/24/17 06:05 Bedside Glucose 144 mg/dl (70-90) 207 mg/dl (70-90) 193 mg/dl (70-90) Red Blood Count 3.03 M/uL (4.2-5.4) Mean Corpuscular Volume 91.7 fL (80-100) Mean Corpuscular Hemoglobin 31.7 pg (25-34) Mean Corpuscular Hemoglobin Concent 34.5 g/dl (32-36) RDW Standard Deviation 50.0 fL (36.4-46.3) RDW Coefficient of Variation 15.4 % (11.5-14.5) Mean Platelet Volume 9.7 fL (7.4-10.4) Nucleated RBC Absolute Count (auto) 0.06 K/uL (0-0) Nucleated Red Blood Cells % 0.4 % Prothrombin Time 14.1 SECONDS (9.0-12.0) Prothromb Time International Ratio 1.4 (0.9-1.1) Anion Gap 10.0 mmol/L (3-11) Est Creatinine Clear Calc Drug Dose 21.1 ml/min Estimated GFR () 25.0 Estimated GFR (Non- 21.5 BUN/Creatinine Ratio 26.6 (10-20) Calcium Level 7.7 mg/dl (8.5-10.1) Magnesium Level 1.9 mg/dl (1.8-2.4) Test 12/24/17 07:31 Bedside Glucose 115 mg/dl (70-90) Allergies Coded Allergies: No Known Allergies (Verified , 12/18/17) Medications Current Inpatient Medications Medications (Trade) Dose Ordered Sig/Heri Route Start Time Stop Time Status Last Admin Dose Admin Duloxetine HCl (Cymbalta Cap) 30 mg QAM PO 12/19/17 09:00 01/18/18 08:59 12/24/17 08:19 30 MG Levothyroxine Sodium (Synthroid Tab) 88 mcg DAILYBB PO 12/19/17 06:30 01/18/18 06:59 12/24/17 06:06 88 MCG Simvastatin (Zocor Tab) 40 mg QPM PO 12/18/17 21:00 01/17/18 20:59 12/23/17 20:56 40 MG Acetaminophen (Tylenol Tab) 650 mg Q4H PRN PO 12/18/17 16:45 01/17/18 16:44 Al Hydrox/Mg Hydrox/Simethicone (Maalox Max Susp) 15 ml Q4H PRN PO 12/18/17 16:45 01/17/18 16:44 12/22/17 00:18 15 ML Magnesium Hydroxide (Milk Of Magnesia Susp) 30 ml Q12H PRN PO 12/18/17 16:45 01/17/18 16:44 Zolpidem Tartrate (Ambien Tab) 5 mg HSZ PRN PO 12/18/17 16:45 01/17/18 16:44 Ondansetron HCl (Zofran Inj) 4 mg Q6H PRN IV 12/18/17 16:45 01/17/18 16:44 Polyethylene (Miralax Powder Packet) 17 gm DAILY PRN PO 12/18/17 16:45 01/17/18 16:44 12/23/17 15:27 17 GM Insulin Aspart (novoLOG ASPART) SLIDING SCALE If C... ACHS SC 12/18/17 21:00 01/17/18 20:59 12/23/17 20:58 2 UNITS Glucose (Glucose 40% Gel) 15-30 GRAMS 15 GRAMS... UD PRN PO 12/18/17 16:45 01/17/18 16:44 Glucose (Glucose Chew Tab) 4-8 Tablets 4 Tabl... UD PRN PO 12/18/17 16:45 01/17/18 16:44 Dextrose (Dextrose 50% 50ML Syringe) 25-50ML OF 50% DW IV FOR... UD PRN IV 12/18/17 16:45 01/17/18 16:44 Glucagon (Glucagon Inj) 1 mg UD PRN SQ 12/18/17 16:45 01/17/18 16:44 Metoprolol Tartrate (Lopressor Tab) 100 mg BID PO 12/19/17 21:00 01/17/18 20:59 12/24/17 08:19 100 MG Prednisone (PredniSONE TAB) 20 mg Taper DAILY PO 12/20/17 09:00 12/27/17 08:59 12/24/17 08:19 20 MG Cephalexin Monohydrate (Keflex Cap) 250 mg BID PO 12/21/17 09:00 12/26/17 08:59 12/24/17 08:19 250 MG Lidocaine (Lidoderm Patch 5%) 1 patch QAM TD 12/21/17 09:00 01/20/18 08:59 12/24/17 08:19 1 PATCH Miscellaneous (Remove Lidoderm Patch) 1 ea DAILY@21 N/A 12/20/17 21:00 01/19/18 20:59 12/23/17 20:56 1 EA Miconazole Nitrate (Desenex Powder) 1 appln PRN PRN EXT 12/23/17 20:30 01/22/18 20:29 12/23/17 22:19 1 APPLN Impression (1) Chronic kidney disease (CKD) stage G3b/A1, moderately decreased glomerular filtration rate (GFR) between 30-44 mL/min/1.73 square meter and albuminuria creatinine ratio less than 30 mg/g (2) KEILY (acute kidney injury) (3) Fall (4) Anemia (5) SVT (supraventricular tachycardia) Maren is an 87-year-old female with acute renal insufficiency superimposed on chronic kidney disease. The patient presented with significant diffuse bruising including several hematomas resulting from a fall at home. She had SVT on arrival. Hospital course has been complicated by episodes of hypotension as well as acute anemia. KEILY is consistent with ATN. UA/microscopy documenting granular cast. CT of the abdomen revealed normal appearing kidneys with a 1.4 cm right renal cyst. There was no evidence of obstruction. The patient is non oliguric. Britt is draining clear yellow urine. CPK was found to be 250. The patient has evidence of CKD/MBD including secondary hyperparathyroidism with 25OH D deficiency. Metabolic profile is otherwise appropriate. 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 Medications are appropriately dosed for renal function. Blood pressure is currently acceptable. Recommendations KEILY: -- Creatinine approaching baseline -- Medications are appropriate for renal function -- Monitor metabolic profile daily -- Document I/O's -- Volume status acceptable, maintain even to slightly positive fluid balance -- Encourage nutrition CKD: -- Outpatient follow up will be arranged -- Continue to hold Dyazide and captopril -- Baseline creatinine 2.0 mg/dL CKD/MBD: -- Ergocalciferol 93851 IU weekly Anemia: -- Secondary to acute blood loss -- Will monitor
[2017-12-24] MEDS ORDERED: LDDP5 TD (09:43)
[2017-12-24] MEDS ORDERED: METO100T14 PO (09:43)
[2017-12-24] MEDS ORDERED: KFL250 PO (09:43)
[2017-12-24] MEDS ORDERED: MCTP EXT (09:43)
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
[2017-12-24] MEDS ORDERED: VTMD1000 PO (10:00)
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
[2017-12-24] MEDS ORDERED: WARFARIN SOD 3 MG TAB PO SCH (16:00)
[2017-12-24] MEDS ORDERED: PANTOprazole SOD 40 MG TAB PO STA (17:32)
[2017-12-24] MEDS ORDERED: GI COCKTAIL PO STA (17:32)
[2017-12-24] MEDS ORDERED: OMEP20TA PO (17:34)
[2017-12-24] MEDS ORDERED: ALUMINUM/MAGNESIUM SUSP 18 ML, LIDOCAINE HCL 2% VISCOUS SOLN 6 ML, BARCODE IDENTIFIER 1 EA PO ONE ×2 (18:30)
[2017-12-24] MEDS: SIMVASTATIN 40 MG TAB PO SCH (20:40)
[2017-12-25 03:55] VITALS: BP 130/68; PULSE 55; TEMP 36.5; O2SAT 99
[2017-12-25] MEDS: LEVOTHYROXINE 88 MCG TAB PO SCH (06:13)
[2017-12-25] MEDS: INSULIN ASPART 100 UNITS/ML 3 ML PEN SC SCH ×2 (06:30→12:58)
[2017-12-25 07:01] LABS: HEMATOCRIT 29.4 % (37-47); HEMOGLOBIN 9.7 g/dL (12.0-16.0); MEAN CELL VOLUME 93.6 fL (80-100); MEAN CORPUSCULAR HEMOGLOBIN 30.9 pg (25-34); MEAN PLATELET VOLUME 9.9 fL (7.4-10.4); PLATELET COUNT 235 K/uL (130-400); RED CELL DISTRIBUTION WIDTH CV 15.6 % (11.5-14.5); RED CELL DISTRIBUTION WIDTH SD 51.6 fL (36.4-46.3); WHITE BLOOD COUNT 11.56 K/uL (4.8-10.8)
[2017-12-25 07:08] LABS: INR 1.2 (0.9-1.1)
[2017-12-25 07:15] VITALS: BP 159/63; PULSE 81; TEMP 36.4; O2SAT 98
[2017-12-25 07:31] LABS: CALCIUM 7.8 mg/dl (8.5-10.1); CREATININE 1.84 mg/dl (0.60-1.20); POTASSIUM 4.4 mmol/L (3.5-5.1)
[2017-12-25] MEDS: DULOXETINE (CYMBALTA) 30 MG CAP PO SCH (08:05)
[2017-12-25] MEDS: LIDODERM (LIDOCAINE) PATCH 5% TD SCH (08:07)
[2017-12-25] MEDS: METOPROLOL TARTRATE 50 MG TAB PO SCH (08:07)
[2017-12-25] MEDS: CEPHALEXIN MONOHYDRATE 250 MG CAP PO SCH (08:08)
[2017-12-25] MEDS ORDERED: PANTOprazole SOD 40 MG TAB PO SCH (09:00)
--- NOTE | 2017-12-25 09:04 | Nephrology Progress Note ---
Nephrology Progress Note Date of Service Dec 25, 2017. Chief Complaint KEILY Subjective No acute events overnight. Maren feels well this morning. She denies significant pain. She denies shortness of breath. Blood pressure remains acceptable. Appetite good. Volume status appropriate. Review of Systems A complete review of systems was performed. Pertinent positives are noted above. All other systems are negative. Vital Signs Last 8 Hrs Date Time Temp Pulse Resp B/P (MAP) Pulse Ox O2 Delivery O2 Flow Rate FiO2 12/25/17 08:00 Room Air 12/25/17 07:15 36.4 81 16 159/63 (95) 98 Room Air 12/25/17 04:00 Room Air 12/25/17 03:55 36.5 55 18 130/68 (88) 99 Room Air Last Recorded Weight Weight (Kilograms): 90.500 Physical Exam General Appearance: WD/WN, no apparent distress Head: normocephalic, atraumatic Eyes: normal inspection, sclerae normal ENT: normal ENT inspection, pharynx normal Neck: supple, no JVD Respiratory/Chest: lungs clear, no respiratory distress, no accessory muscle use Cardiovascular: regular rate, rhythm, no gallop, no murmur Abdomen/GI: non tender, soft Extremities/Musculoskelatal: normal inspection, no pedal edema Neurologic/Psych: alert, normal mood/affect Social History Smoking Status: Never smoker Marital Status: Occupation: retired Laboratory Results Past 24 Hours 12/25/17 06:24 12/25/17 06:24 Test 12/24/17 11:32 12/24/17 16:44 12/24/17 20:21 12/25/17 06:24 Bedside Glucose 160 mg/dl (70-90) 191 mg/dl (70-90) 168 mg/dl (70-90) Red Blood Count 3.14 M/uL (4.2-5.4) Mean Corpuscular Volume 93.6 fL (80-100) Mean Corpuscular Hemoglobin 30.9 pg (25-34) Mean Corpuscular Hemoglobin Concent 33.0 g/dl (32-36) RDW Standard Deviation 51.6 fL (36.4-46.3) RDW Coefficient of Variation 15.6 % (11.5-14.5) Mean Platelet Volume 9.9 fL (7.4-10.4) Prothrombin Time 12.2 SECONDS (9.0-12.0) Prothromb Time International Ratio 1.2 (0.9-1.1) Anion Gap 8.0 mmol/L (3-11) Est Creatinine Clear Calc Drug Dose 23.0 ml/min Estimated GFR () 28.3 Estimated GFR (Non- 24.4 BUN/Creatinine Ratio 30.1 (10-20) Calcium Level 7.8 mg/dl (8.5-10.1) Test 12/25/17 07:27 Bedside Glucose 108 mg/dl (70-90) Allergies Coded Allergies: No Known Allergies (Verified , 12/18/17) Medications Current Inpatient Medications Medications (Trade) Dose Ordered Sig/Heri Route Start Time Stop Time Status Last Admin Dose Admin Duloxetine HCl (Cymbalta Cap) 30 mg QAM PO 12/19/17 09:00 01/18/18 08:59 12/25/17 08:05 30 MG Levothyroxine Sodium (Synthroid Tab) 88 mcg DAILYBB PO 12/19/17 06:30 01/18/18 06:59 12/25/17 06:13 88 MCG Simvastatin (Zocor Tab) 40 mg QPM PO 12/18/17 21:00 01/17/18 20:59 12/24/17 20:40 40 MG Acetaminophen (Tylenol Tab) 650 mg Q4H PRN PO 12/18/17 16:45 01/17/18 16:44 Al Hydrox/Mg Hydrox/Simethicone (Maalox Max Susp) 15 ml Q4H PRN PO 12/18/17 16:45 01/17/18 16:44 12/22/17 00:18 15 ML Magnesium Hydroxide (Milk Of Magnesia Susp) 30 ml Q12H PRN PO 12/18/17 16:45 01/17/18 16:44 Zolpidem Tartrate (Ambien Tab) 5 mg HSZ PRN PO 12/18/17 16:45 01/17/18 16:44 Ondansetron HCl (Zofran Inj) 4 mg Q6H PRN IV 12/18/17 16:45 01/17/18 16:44 Polyethylene (Miralax Powder Packet) 17 gm DAILY PRN PO 12/18/17 16:45 01/17/18 16:44 12/23/17 15:27 17 GM Insulin Aspart (novoLOG ASPART) SLIDING SCALE If C... ACHS SC 12/18/17 21:00 01/17/18 20:59 12/24/17 20:45 1 UNITS Glucose (Glucose 40% Gel) 15-30 GRAMS 15 GRAMS... UD PRN PO 12/18/17 16:45 01/17/18 16:44 Glucose (Glucose Chew Tab) 4-8 Tablets 4 Tabl... UD PRN PO 12/18/17 16:45 01/17/18 16:44 Dextrose (Dextrose 50% 50ML Syringe) 25-50ML OF 50% DW IV FOR... UD PRN IV 12/18/17 16:45 01/17/18 16:44 Glucagon (Glucagon Inj) 1 mg UD PRN SQ 12/18/17 16:45 01/17/18 16:44 Metoprolol Tartrate (Lopressor Tab) 100 mg BID PO 12/19/17 21:00 01/17/18 20:59 12/25/17 08:07 100 MG Prednisone (PredniSONE TAB) 20 mg Taper DAILY PO 12/20/17 09:00 12/27/17 08:59 12/25/17 08:05 10 MG Cephalexin Monohydrate (Keflex Cap) 250 mg BID PO 12/21/17 09:00 12/26/17 08:59 12/25/17 08:08 250 MG Lidocaine (Lidoderm Patch 5%) 1 patch QAM TD 12/21/17 09:00 01/20/18 08:59 12/25/17 08:07 1 PATCH Miscellaneous (Remove Lidoderm Patch) 1 ea DAILY@21 N/A 12/20/17 21:00 01/19/18 20:59 12/24/17 20:38 1 EA Miconazole Nitrate (Desenex Powder) 1 appln PRN PRN EXT 12/23/17 20:30 01/22/18 20:29 12/23/17 22:19 1 APPLN Warfarin Sodium (Coumadin Tab) 3 mg DAILY@16 PO 12/24/17 16:00 01/23/18 15:59 12/24/17 16:39 3 MG Pantoprazole Sodium (Protonix Tab) 40 mg QAM PO 12/25/17 09:00 01/24/18 08:59 12/25/17 08:06 40 MG Impression (1) Chronic kidney disease (CKD) stage G3b/A1, moderately decreased glomerular filtration rate (GFR) between 30-44 mL/min/1.73 square meter and albuminuria creatinine ratio less than 30 mg/g (2) KEILY (acute kidney injury) (3) Fall (4) Anemia (5) SVT (supraventricular tachycardia) Maren is an 87-year-old female with acute renal insufficiency superimposed on chronic kidney disease. The patient presented with significant diffuse bruising including several hematomas resulting from a fall at home. She had SVT on arrival. Hospital course has been complicated by episodes of hypotension as well as acute anemia. KEILY is consistent with ATN. UA/microscopy documenting granular cast. CT of the abdomen revealed normal appearing kidneys with a 1.4 cm right renal cyst. There was no evidence of obstruction. The patient is non oliguric. Britt is draining clear yellow urine. CPK was found to be 250. The patient has evidence of CKD/MBD including secondary hyperparathyroidism with 25OH D deficiency. Renal function is improving and metabolic profile is otherwise appropriate. Patient is to be discharged home today with outpatient follow up arranged. Blood pressure is currently acceptable. Recommendations KEILY: -- Outpatient follow up will be arranged in the nephrology clinic within 2 weeks of discharge -- Please check metabolic profile within 1 week of discharge and fax results to ([phone] attn: Dr. Rankin) -- Medications are appropriate for renal function -- Continue to hold Dyazide and captopril for now -- Encourage nutrition CKD: -- Outpatient follow up will be arranged CKD/MBD: -- Ergocalciferol 61598 IU weekly Anemia: -- No need for ALONZO therapy at this time
[2017-12-25 12:00] VITALS: BP 130/77; PULSE 55; TEMP 36.7; O2SAT 99
[2017-12-25] MEDS ORDERED: KFL250 PO (12:34)
[2017-12-25 13:13] VITALS: BP 130/77; PULSE 55; TEMP 36.7; O2SAT 99
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
== END 2017-12-25 15:29 | DRG 280 ==
LOC: C.EDB 12:11 → EDBD 12:11 → C.MED 16:57 → ENRESERV 17:15
PROVIDERS: ADMIT Internal Medicine; ATTEND Family Medicine
DX: I21.4 Non-ST elevation (NSTEMI) myocardial infarction (principal); N17.0 Acute kidney failure with tubular necrosis; E27.40 Unspecified adrenocortical insufficiency; N39.0 Urinary tract infection, site not specified; D62 Acute posthemorrhagic anemia; E87.2 Acidosis; N25.81 Secondary hyperparathyroidism of renal origin; T38.0X5A Adverse effect of glucocorticoids and synthetic analogues, initial encounter; M89.9 Disorder of bone, unspecified; E89.0 Postprocedural hypothyroidism; E55.9 Vitamin D deficiency, unspecified; E66.01 Morbid (severe) obesity due to excess calories; M19.90 Unspecified osteoarthritis, unspecified site; E11.9 Type 2 diabetes mellitus without complications; I12.9 Hypertensive chronic kidney disease with stage 1 through stage 4 chronic kidney disease, or unspecified chronic kidney disease; N18.3 Chronic kidney disease, stage 3 (moderate); F32.9 Major depressive disorder, single episode, unspecified; I95.9 Hypotension, unspecified; I48.0 Paroxysmal atrial fibrillation; T07.XXXA Unspecified multiple injuries, initial encounter; Z79.52 Long term (current) use of systemic steroids; Z86.711 Personal history of pulmonary embolism; Z96.659 Presence of unspecified artificial knee joint; Z79.84 Long term (current) use of oral hypoglycemic drugs; Z79.01 Long term (current) use of anticoagulants; Z86.718 Personal history of other venous thrombosis and embolism; W19.XXXA Unspecified fall, initial encounter

== ENCOUNTER → 2018-01-02 | Outpatient (CLI) | payer BC ==
[~2018-01-02] MED LIST changes: -ACET-1256 PO; -CALC1CHW57 PO; -CLTP PO; -CMD25 PO; -CMD5 PO; -CPT50 PO; -CYM60 PO; -DTR5 PO; -DYZ PO; +KFL250 PO; +LDDP5 TD; -LEVO100T48 PO; +MCTP EXT; +METO100T14 PO; -METO50TA16 PO; +OMEP20TA PO; -TRAM-10 PO; -TRIATAB3 PO; +VTMD1000 PO; +WARF1TAB6 PO; -[UNRECOGNIZED DRUG - CODE] PO
[2018-01-02 12:07] LABS: HEMOGLOBIN 8.6 g/dL (12.0-16.0); MEAN CELL VOLUME 97.1 fL (80-100); MEAN CORPUSCULAR HEMOGLOBIN 30.9 pg (25-34); MEAN CORPUSCULAR HGB CONC 31.9 g/dl (32-36); MEAN PLATELET VOLUME 10.3 fL (7.4-10.4); PLATELET COUNT 239 K/uL (130-400); RED CELL DISTRIBUTION WIDTH CV 15.5 % (11.5-14.5); RED CELL DISTRIBUTION WIDTH SD 54.4 fL (36.4-46.3); WHITE BLOOD COUNT 9.84 K/uL (4.8-10.8)
[2018-01-02 12:29] LABS: BASO % 0.1 %; BASO ABS # 0.01 K/uL (0-0.2); EOS % 0.8 %; EOS ABS # 0.08 K/uL (0-0.5); IG# 0.07 K/uL (0.00-0.02); LYMPH % 12.5 %; LYMPH ABS # 1.23 K/uL (1.2-3.4); MONO % 11.4 %; MONO ABS # 1.12 K/uL (0.11-0.59); NEUT % 74.5 %; NEUT ABS # 7.33 K/uL (1.4-6.5)
[2018-01-02 13:09] LABS: BLOOD UREA NITROGEN 47 mg/dl (7-18); CARBON DIOXIDE 22 mmol/L (21-32); CREATININE 2.08 mg/dl (0.60-1.20); GLUCOSE 134 mg/dl (70-99); POTASSIUM 3.8 mmol/L (3.5-5.1); SODIUM 137 mmol/L (136-145)
== END | disposition home or self-care (01) ==
LOC: C.LAB1850 10:52
PROVIDERS: ATTEND Internal Medicine Cardiovascular Disease
DX: M19.049 Primary osteoarthritis, unspecified hand (principal); R60.0 Localized edema; Z79.01 Long term (current) use of anticoagulants

== ENCOUNTER → 2018-01-14 | Outpatient (CLI) | payer BC ==
[2018-01-14 15:53] LABS: HEMATOCRIT 33.4 % (37-47); HEMOGLOBIN 10.6 g/dL (12.0-16.0)
[2018-01-14 15:57] LABS: INR 2.4 (0.9-1.1)
== END | disposition home or self-care (01) ==
LOC: C.LAB1850 14:18
PROVIDERS: ATTEND Physician Assistant Medical
DX: D62 Acute posthemorrhagic anemia (principal); I48.91 Unspecified atrial fibrillation; Z51.81 Encounter for therapeutic drug level monitoring

== ENCOUNTER → 2018-05-24 | Outpatient (CLI) | payer BC ==
[~2018-05-24] MED LIST changes: +ACET-1138 PO; +CHOL1000 PO; +CMD4 PO; -DIPH-416 PO; +DOCU-94 PO; +FERR1TAB13 PO; -KFL250 PO; -LDDP5 TD; -MCTP EXT; +OMEP-334 PO; -OMEP20TA PO; -VTMD1000 PO; -WARF1TAB6 PO
[2018-05-24 08:43] LABS: INR 2.2 (0.9-1.1)
== END ==
LOC: C.LABCC 08:11
PROVIDERS: ATTEND Internal Medicine
DX: I48.91 Unspecified atrial fibrillation (principal)

== ENCOUNTER → 2018-06-03 | Outpatient (CLI) | payer BC | LOC: C.LABCC 08:17 | PROVIDERS: ATTEND Internal Medicine | DX: E03.9 Hypothyroidism, unspecified (principal); M35.3 Polymyalgia rheumatica ==

== ENCOUNTER → 2018-06-04 | Outpatient (CLI) | payer BC | LOC: C.LABCC 14:05 | PROVIDERS: ATTEND Internal Medicine | DX: L08.9 Local infection of the skin and subcutaneous tissue, unspecified (principal) ==

== ENCOUNTER → 2018-06-05 | Outpatient (CLI) | payer BC ==
[2018-06-05 08:29] LABS: INR 1.9 (0.9-1.1)
== END ==
LOC: C.LABCC 08:08
PROVIDERS: ATTEND Internal Medicine
DX: I48.91 Unspecified atrial fibrillation (principal)

== ENCOUNTER → 2018-06-06 | Outpatient (CLI) | payer BC | LOC: C.LABCC 12:50 | PROVIDERS: ATTEND Internal Medicine | DX: L89.90 Pressure ulcer of unspecified site, unspecified stage (principal) ==

== ENCOUNTER → 2018-06-07 | Outpatient (CLI) | payer BC | LOC: C.LABCC 08:02 | PROVIDERS: ATTEND Internal Medicine | DX: T14.8XXA Other injury of unspecified body region, initial encounter (principal); X58.XXXA Exposure to other specified factors, initial encounter ==

== ENCOUNTER → 2018-06-10 | Outpatient (CLI) | payer BC ==
[2018-06-10 09:37] LABS: INR 2.1 (0.9-1.1)
[2018-06-10 09:42] LABS: BLOOD UREA NITROGEN 35 mg/dl (7-18); CALCIUM 8.2 mg/dl (8.5-10.1); CARBON DIOXIDE 24 mmol/L (21-32); CREATININE 1.76 mg/dl (0.60-1.20); GLUCOSE 85 mg/dl (70-99); SODIUM 138 mmol/L (136-145)
== END ==
LOC: C.LABCC 08:02
PROVIDERS: ATTEND Internal Medicine
DX: I48.91 Unspecified atrial fibrillation (principal); N18.9 Chronic kidney disease, unspecified; E23.0 Hypopituitarism

== ENCOUNTER → 2018-06-12 | Outpatient (CLI) | payer BC ==
[2018-06-12 09:59] LABS: INR 2.1 (0.9-1.1)
== END ==
LOC: C.LABCC 08:47
PROVIDERS: ATTEND Internal Medicine
DX: I48.91 Unspecified atrial fibrillation (principal)

== ENCOUNTER → 2018-06-20 | Outpatient (CLI) | payer BC ==
[2018-06-20 09:29] LABS: INR 1.3 (0.9-1.1)
== END ==
LOC: C.LABCC 08:29
PROVIDERS: ATTEND Internal Medicine
DX: I48.91 Unspecified atrial fibrillation (principal)

== ENCOUNTER → 2018-06-25 | Outpatient (CLI) | payer BC ==
[2018-06-25 09:31] LABS: INR 1.1 (0.9-1.1)
== END ==
LOC: C.LABCC 08:36
PROVIDERS: ATTEND Internal Medicine
DX: I48.91 Unspecified atrial fibrillation (principal)